=== PATIENT | female | born 1940 | race Caucasian/White ===

== ENCOUNTER 2020-01-13 13:39 | Outpatient (CLI) | payer MEDICARE, OTHER, SELFPAY ==
--- NOTE | 2020-01-13 15:11 | ONC FU_ITS ---
Dr. Peters Patient Follow-Up Note Patient: Noelle Whyte Unit #: [id number]: 1940 Dicatated By: Noah Peters M.D.Date of Visit:Jan 13, 2020 Onc Med Follow-up/Prog Note Chief Complaint: Chronic lymphocytic leukemia. History of Present Illness: This is a 79 year-old woman with chronic lymphocytic leukemia, Solis stage 0, but symptomatic. She was initially diagnosed with chronic lymphocytic leukemia 30 years ago, apparently by cervical lymph node biopsy. She had no treatment until 2011, when she was given a standard 4 week course of Rituxan. She had a very good response, but she did require treatment again in August 2014. At that time she was living in [place]. She had subsequently moved to [place], [place]. Her CBC from September 2015 showed elevated white count at 50,000 with differential showing 88% lymphocytes. The hemoglobin was normal at 13.5 g and the platelet count was normal at 170,000. A repeat CBC from 01/08/2016 showed the white count up to 85,000 with hemoglobin stable at 13.5 g and platelet count 181,000. I had seen her initially in January 2016. At that time she complained that she had been getting awfully tired. She reported having similar symptoms in the past when her white count was going up. She had been feeling okay otherwise. Her CBC at that time showed white count 78,000 with hemoglobin 12.8 g and platelet count 162,000. Her LDH was in the upper normal range at 235 U/L. A CLL prognostic panel by FISH was unrevealing. By objective evaluation her she still appeared to have early stage (Solis stage 0). However, she was showing fairly rapid progression, and she also appeared to be symptomatic. As such, she was offered the option of a trial therapy with ibrutinib. She started treatment in January 2016 at a standard dosage of 420 mg daily. Her lymphocyte count initially increased on the ibrutinib, as expected. Within a month it had started to come down, and it then continued to gradually decline. However, in September 2016 her ibrutinib was put on hold due to increasing fatigue, though at the time she did appeared to be showing a very good response to the treatment. She was then followed on observation/expectant management. She has additional history of portal vein thrombosis with associated esophageal varices. Her other medical illnesses include type II diabetes, GERD, and hypothyroidism. She is a nonsmoker. During followup she had developed a severe sinus infection. She eventually did have sinus surgery on 01/29/2018. Her clincical course was further complicated by Pseudomonas pneumonia. She had then continued further outpatient antibiotic coverage with meropenem, administered through a PICC line. She did have a complete recovery. She also had a repeat endoscopy procedure with Dr. Hernandez, and she apparently had 4 additional varices banded. She continued on observation/expectant management for the CLL. INTERIM HISTORY: As of her follow-up visit on 01/07/2019 her white count had increased to 101,000 with 91% lymphocytes. Hemoglobin had decreased slightly to 12.6 g. Her platelet count was still normal at 191,000. However, with the significant disease progression, I did talk to her about the possibility of restarting ibrutinib at a lower dosage. She was agreeable, but she preferred to delay it for least a few weeks. She then started ibrutinib on 01/26/2019 at a reduced dosage of 280 mg daily. As of her follow-up visit on 03/11/2019 she appeared to be tolerating it with acceptable toxicity and she was showing evidence of response. She then continued ibrutinib at 280 mg daily. She is seen for a follow-up visit. She continues to complain that her energy is not very good, but she is still doing light work at home. Her ECOG score is 1. She has good appetite. She has no fever or night sweats. Over the past 3 days she has developed pain and redness in both eyes, the left worse than the right. She says her eyes are mattering a lot. She is not having sinus symptoms. She does not complain of shortness of breath, cough, or chest pain. She has no GI or complaints. She has no significant joint or bone pain. She has no focal neurologic symptoms. Medications: Aldactone 2 (100 mg) Tablet Oral daily, Allopurinol 1 Tablet (of 300 mg) Oral daily, Carvedilol 1 Tablet (of 3.125 mg) Oral daily, Glimepiride 1 (2 mg) Tablet Oral daily, Imbruvica 1 (280 mg) Capsule Oral daily, Lantus 32 Units (of 100 Units/mL) Subcutaneous at bedtime, Levothroid 1 (175 mcg) Tablet Oral daily, Meloxicam 1 (15 mg) Tablet Oral daily, PriLOSEC 1 (40 mg) Capsule Delayed Release Oral daily Allergies: Codeine Sulfate Review of Systems: Constitutional - Her energy is not very good. She does light work at home. Her appetite is good and her weight is up 5 pounds since her last visit. No fever, chills, hot flashes, or night sweats. ECOG score is 1, Eyes - She has redness, pain and discharge in both of her eyes that started about 3 days ago. The left eye is worse than the right, ENMT - No sinus congestion/drainage. No mouth sores. No sore throat or difficulty swallowing, Hematologic/Lymphatic - No abnormal bruising or bleeding, Respiratory - No shortness of breath. No cough. No pleuritic pain or hemoptysis, Cardiovascular - No angina pain. No palpitations, Gastrointestinal - No nausea or vomiting. No heartburn or acid reflux. No diarrhea or constipation. No blood in the stool or black stools, Genitourinary (F) - No dysuria or hematuria. No urinary frequency. No urgency or incontinence, Musculoskeletal - No joint or bone pain, Integumentary - No skin complications, Neurologic - No headache or dizziness. No numbness/paresthesias or other focal neurologic symptoms, Psychiatric - No anxiety or depression. No insomnia. Vital Signs: Performed on Jan 13, 2020 14:00 Height - 62.50 in Weight - 219.0 lbs (HIGH) BSA - 2.00 sq.m BMI - 39.42 (HIGH) Temperature - 97.3 F (LOW) Pulse - 79 /min Respiration - 26 /min BP - 149/83 mm(hg) (HIGH) O2 Sat - 99 % Pain - 5 Physical Examination: Constitutional - She looks pretty good generally, Eyes - Sclerae nonicteric. Both eyes are red, the left worse than the right. The left eye has a slght purulent discharge, ENMT - There are no lesions noted in the oral cavity, Hematologic/Lymphatic - No cervical, clavicular, or axillary adenopathy, Respiratory - Lungs are clear with good air movement bilaterally, Cardiovascular - Heart rhythm is regular. There is a II/ systolic murmur. There is no gallop or rub noted, Abdomen - Soft. Liver and spleen are not enlarged. There is no abdominal mass or ascites noted and there is no inguinal adenopathy, Extremities - There are severe venous stasis changes bilaterally. There is no edema, Neurologic - No focal neurologic deficits noted. Lab/Imaging: Test performed on Dec 27, 2019 10:27 Glucose 98 mg/dL LDH, Total 198 IU/L BUN 37 mg/dL Creatinine 1.13 mg/dL Cr Clearance (Est) 63.95 mL/min BUN/Creatinine Ratio 33 Absolute Value Sodium 144 mmol/L Potassium 4.6 mmol/L Chloride 108 mmol/L CO2 23 mmol/L Calcium 9.6 mg/dL Protein, Total 5.8 g/dL Albumin 4.2 g/dL Globulin 1.6 g/dL A/G Ratio 2.6 Absolute Value Bilirubin, Total 0.6 mg/dL Alkaline Phosphatase 95 IU/L AST (SGOT) 21 IU/L ALT (SGPT) 19 IU/L WBC 6.1 10^9/L RBC 4.63 10^12/L HGB 13.3 g/dL HCT 40.4 % MCV 87.3 fl MCH 28.7 pg MCHC 32.9 g/dL RDW 14.3 % Platelet Count 157 10^9/L Neutrophils (Gran) 2.9951 10^9/L Lymphocytes 2.4949 10^9/L Monocytes 0.4636 10^9/L Eosinophils 0.0976 10^9/L Basophils 0.0305 10^9/L Impression: 1. Patient with longstanding chronic leukocytic leukemia. I had seen her initially in January 2016. By objective assessment, she had early stage disease (Solis stage 0), but it did appear to be symptomatic, and it was progressing fairly rapidly. She had previously responded well to treatment with rituximab, but with relatively short-term response. 2. In January 2016 she began a trial of therapy with ibrutinib at a standard dosage of 420 mg daily. She had a very good response, but it was stopped as of September 2016 due to worsening fatigue. 3. In 2017 she required treatment for Pseudomonas sinus infection and pneumonia, and she underwent sinus surgery in January 2018. Her other medical illnesses include:. 4. Portal vein thrombosis with associated portal hypertension/esophageal varices. 5. Type II diabetes. 6. Hypothyroidism. 7. GERD. She had a good recovery following her sinus surgery in January 2018, but she continued to have fatigue. As of her followup visit on 01/07/2019 there was a significantly increase in her lymphocyte count. Her hemoglobin/hematocrit levels were down slightly, and there appeared to have been some decline in her platelet count, though not consistently. Overall, there was definite progression of her CLL, and in January 2019 she restarted ibrutinib at a reduced dosage of 280 mg daily. During follow-up, she had a gradual decline in her lymphocyte count along with improvement in the anemia and thrombocytopenia. She also had significant improvement in her clinical status. At this point she continues to have significant fatigue, but she appears to tolerating treatment well otherwise, and her blood counts now are normal. Overall, she has had a very good response to the treatment, though she does present now with clinical evidence of bilateral conjunctivitis. Plan: She will continue ibrutinib 280 mg daily. As she does appear to have immune suppression it with the CLL, she will be given a prescription for trimethoprim/polymyxin B eyedrops for the conjunctivitis. I also will check her quantitative immunoglobulin levels with her next visit, which will be in 3 months. Signed By: Noah Peters M.D. <<Signature on File>>
== END 2020-01-13 13:40 | disposition home or self-care (01) ==
LOC: ONCMED 13:39
PROVIDERS: Family Provider Family Medicine; PCP Family Medicine; Visit Provider Internal Medicine Medical Oncology
DX: C91.10 Chronic lymphocytic leukemia of B-cell type not having achieved remission (principal); E11.9 Type 2 diabetes mellitus without complications; K21.9 Gastro-esophageal reflux disease without esophagitis; E03.9 Hypothyroidism, unspecified; H10.9 Unspecified conjunctivitis; Z79.4 Long term (current) use of insulin
CPT/HCPCS: 99214

== ENCOUNTER 2020-04-27 15:23 | Outpatient (CLI) | payer MEDICARE, OTHER, SELFPAY ==
--- NOTE | 2020-04-30 13:18 | ONC FU_ITS ---
Dr. Peters Patient Follow-Up Note Patient: Noelle Whyte Unit #: [id number]: [id number] Dicatated By: Noah Peters M.D.Date of Visit:Apr 27, 2020 Onc Med Follow-up/Prog Note Chief Complaint: Chronic lymphocytic leukemia. History of Present Illness: This is a 79 year-old woman with chronic lymphocytic leukemia, Solis stage 0, but symptomatic. She was initially diagnosed with chronic lymphocytic leukemia 30 years ago, apparently by cervical lymph node biopsy. She had no treatment until 2011, when she was given a standard 4 week course of Rituxan. She had a very good response, but she did require treatment again in August 2014. At that time she was living in [place]. She had subsequently moved to [place], [place]. Her CBC from September 2015 showed elevated white count at 50,000 with differential showing 88% lymphocytes. The hemoglobin was normal at 13.5 g and the platelet count was normal at 170,000. A repeat CBC from 01/08/2016 showed the white count up to 85,000 with hemoglobin stable at 13.5 g and platelet count 181,000. I had seen her initially in January 2016. At that time she complained that she had been getting awfully tired. She reported having similar symptoms in the past when her white count was going up. She had been feeling okay otherwise. Her CBC at that time showed white count 78,000 with hemoglobin 12.8 g and platelet count 162,000. Her LDH was in the upper normal range at 235 U/L. A CLL prognostic panel by FISH was unrevealing. By objective evaluation her she still appeared to have early stage (Solis stage 0). However, she was showing fairly rapid progression, and she also appeared to be symptomatic. As such, she was offered the option of a trial therapy with ibrutinib. She started treatment in January 2016 at a standard dosage of 420 mg daily. Her lymphocyte count initially increased on the ibrutinib, as expected. Within a month it had started to come down, and it then continued to gradually decline. However, in September 2016 her ibrutinib was put on hold due to increasing fatigue, though at the time she did appeared to be showing a very good response to the treatment. She was then followed on observation/expectant management. She has additional history of portal vein thrombosis with associated esophageal varices. Her other medical illnesses include type II diabetes, GERD, and hypothyroidism. She is a nonsmoker. During followup she had developed a severe sinus infection. She eventually did have sinus surgery on 01/29/2018. Her clincical course was further complicated by Pseudomonas pneumonia. She had then continued further outpatient antibiotic coverage with meropenem, administered through a PICC line. She did have a complete recovery. She also had a repeat endoscopy procedure with Dr. Hernandez, and she apparently had 4 additional varices banded. She continued on observation/expectant management for the CLL. INTERIM HISTORY: As of her follow-up visit on 01/07/2019 her white count had increased to 101,000 with 91% lymphocytes. Hemoglobin had decreased slightly to 12.6 g. Her platelet count was still normal at 191,000. However, with the significant disease progression, I did talk to her about the possibility of restarting ibrutinib at a lower dosage. She was agreeable, but she preferred to delay it for least a few weeks. She then started ibrutinib on 01/26/2019 at a reduced dosage of 280 mg daily. As of her follow-up visit on 03/11/2019 she appeared to be tolerating it with acceptable toxicity and she was showing evidence of response. She then continued ibrutinib at 280 mg daily. She is seen for a follow-up visit. She has been feeling pretty good generally, though she says her energy is still not too good. She is able to do light work. ECOG score is 1. She has good appetite. She has no fever or night sweats. She does complain that she has had mouth sores. She has no shortness of breath, cough, or chest pain. She has no other GI or complaints. She has no significant joint or bone pain. She has no focal neurologic symptoms. Medications: Aldactone 2 (100 mg) Tablet Oral daily, Allopurinol 1 Tablet (of 300 mg) Oral daily, Carvedilol 1 Tablet (of 3.125 mg) Oral daily, Glimepiride 1 (2 mg) Tablet Oral daily, Imbruvica 1 (280 mg) Capsule Oral daily, Lantus 32 Units (of 100 Units/mL) Subcutaneous at bedtime, Levothroid 1 (175 mcg) Tablet Oral daily, Meloxicam 1 (15 mg) Tablet Oral daily, PriLOSEC 1 (40 mg) Capsule Delayed Release Oral daily Allergies: Codeine Sulfate Review of Systems: Constitutional - She is generally feeling good, though her energy is pretty low. She is able to do light work in and around the house. Her appetite is good and weight is stable. No fever, night sweats, or hot flashes. ECOG score is 1, ENMT - No sinus congestion/drainage. She has mouth sores. No sore throat or difficulty swallowing, Hematologic/Lymphatic - She bruises easily, Respiratory - No shortness of breath. No cough. No pleuritic pain or hemoptysis, Cardiovascular - No angina pain. No palpitations, Gastrointestinal - No nausea or vomiting. No heartburn or acid reflux. No diarrhea or constipation. No blood in the stool or black stools, Genitourinary (F) - No dysuria or hematuria. No urinary frequency. No urgency or incontinence, Musculoskeletal - No joint or bone pain, Integumentary - No skin complications, Neurologic - No headache or dizziness. No numbness or tingling. No other focal neurologic symptoms, Psychiatric - No anxiety or depression. No insomnia. Vital Signs: Performed on Apr 27, 2020 15:36 Height - 62.50 in Weight - 220.0 lbs (HIGH) BSA - 2.00 sq.m BMI - 39.60 (HIGH) Temperature - 97.0 F (LOW) Pulse - 93 /min Respiration - 24 /min BP - 134/82 mm(hg) O2 Sat - 94 % (LOW) Pain - 0 Physical Examination: Constitutional - She looks pretty good generally, Eyes - Sclerae nonicteric. Conjunctivae clear, ENMT - There is a small ulceration in the upper gum. There are no other lesions noted in the oral cavity, Hematologic/Lymphatic - No cervical, clavicular, or axillary adenopathy, Respiratory - Lungs are clear with good air movement bilaterally, Cardiovascular - Heart rhythm is regular. There is a II/ systolic murmur. There is no gallop or rub noted, Abdomen - Soft. Liver and spleen are not enlarged. There is no abdominal mass or ascites noted and there is no inguinal adenopathy, Extremities - There are venous stasis changes bilaterally. There is an ulceration in the right lower anterior tibial area. There is no edema, Neurologic - No focal neurologic deficits noted. Lab/Imaging: Test performed on Apr 24, 2020 16:08 Glucose 143 mg/dL LDH, Total 155 IU/L BUN 34 mg/dL Creatinine 1.14 mg/dL Cr Clearance (Est) 64.81 mL/min BUN/Creatinine Ratio 30 Absolute Value Sodium 140 mmol/L Potassium 4.8 mmol/L Chloride 106 mmol/L CO2 21 mmol/L Calcium 9.2 mg/dL Protein, Total 5.9 g/dL Albumin 4.1 g/dL Globulin 1.8 g/dL A/G Ratio 2.3 Absolute Value Bilirubin, Total 0.6 mg/dL Alkaline Phosphatase 99 IU/L AST (SGOT) 21 IU/L ALT (SGPT) 23 IU/L WBC 7.3 10^9/L RBC 4.72 10^12/L HGB 13.8 g/dL HCT 42.1 % MCV 89.2 fl MCH 29.2 pg MCHC 32.8 g/dL RDW 14.1 % Platelet Count 178 10^9/L Neutrophils (Gran) 3.9 10^9/L Lymphocytes 2.5 10^9/L Monocytes 0.6 10^9/L Eosinophils 0.2 10^9/L Basophils 0.0 10^9/L Manual Lymphocytes 34.3 % Manual Monocytes 8.0 % Manual Eosinophils 2.2 % Manual Basophils 0.6 % IGA 202 mg/dL IGG 442 mg/dL IGM 23 mg/dL Impression: 1. Patient with longstanding chronic leukocytic leukemia. I had seen her initially in January 2016. By objective assessment, she had early stage disease (Solis stage 0), but it did appear to be symptomatic, and it was progressing fairly rapidly. She had previously responded well to treatment with rituximab, but with relatively short-term response. 2. In January 2016 she began a trial of therapy with ibrutinib at a standard dosage of 420 mg daily. She had a very good response, but it was stopped as of September 2016 due to worsening fatigue. 3. In 2017 she required treatment for Pseudomonas sinus infection and pneumonia, and she underwent sinus surgery in January 2018. Her other medical illnesses include:. 4. Portal vein thrombosis with associated portal hypertension/esophageal varices. 5. Type II diabetes. 6. Hypothyroidism. 7. GERD. She had a good recovery following her sinus surgery in January 2018, but she continued to have fatigue. As of her followup visit on 01/07/2019 there was a significantly increase in her lymphocyte count. Her hemoglobin/hematocrit levels were down slightly, and there appeared to have been some decline in her platelet count, though not consistently. Overall, there was definite progression of her CLL, and in January 2019 she restarted ibrutinib at a reduced dosage of 280 mg daily. During follow-up, she had a gradual decline in her lymphocyte count along with improvement in the anemia and thrombocytopenia. She also had significant improvement in her clinical status. However, she has since then continued to have significant fatigue and she also now has been having mouth sores. However, she continues to have very good response to the ibrutinib, as her blood counts remain normal. Plan: She will continue ibrutinib, but I will have her reduce the dosage to 140 mg daily. I will see her again in 3 months, or sooner as needed. Signed By: Noah Peters M.D. <<Signature on File>>
== END 2020-04-27 15:24 | disposition home or self-care (01) ==
LOC: ONCMED 15:31
PROVIDERS: PCP Family Medicine; Visit Provider Internal Medicine Medical Oncology
DX: C91.10 Chronic lymphocytic leukemia of B-cell type not having achieved remission (principal); K21.9 Gastro-esophageal reflux disease without esophagitis; E03.9 Hypothyroidism, unspecified; I81 Portal vein thrombosis; I85.00 Esophageal varices without bleeding; E11.9 Type 2 diabetes mellitus without complications; Z79.899 Other long term (current) drug therapy
CPT/HCPCS: 99214

== ENCOUNTER 2020-08-07 14:45 | Outpatient (CLI) | payer MEDICARE, OTHER, SELFPAY ==
--- NOTE | 2020-08-11 18:54 | ONC FU_ITS ---
Dr. Peters Patient Follow-Up Note Patient: Noelle Whyte Unit #: [id number]: [id number] Dicatated By: Noah Peters M.D.Date of Visit:Aug 07, 2020 Onc Med Follow-up/Prog Note Chief Complaint: Chronic lymphocytic leukemia. History of Present Illness: This is a 79 year-old woman with chronic lymphocytic leukemia, Solis stage 0, but symptomatic. She was initially diagnosed with chronic lymphocytic leukemia 30 years ago, apparently by cervical lymph node biopsy. She had no treatment until 2011, when she was given a standard 4 week course of Rituxan. She had a very good response, but she did require treatment again in August 2014. At that time she was living in [place]. She had subsequently moved to [place], [place]. Her CBC from September 2015 showed elevated white count at 50,000 with differential showing 88% lymphocytes. The hemoglobin was normal at 13.5 g and the platelet count was normal at 170,000. A repeat CBC from 01/08/2016 showed the white count up to 85,000 with hemoglobin stable at 13.5 g and platelet count 181,000. I had seen her initially in January 2016. At that time she complained that she had been getting awfully tired. She reported having similar symptoms in the past when her white count was going up. She had been feeling okay otherwise. Her CBC at that time showed white count 78,000 with hemoglobin 12.8 g and platelet count 162,000. Her LDH was in the upper normal range at 235 U/L. A CLL prognostic panel by FISH was unrevealing. By objective evaluation her she still appeared to have early stage (Solis stage 0). However, she was showing fairly rapid progression, and she also appeared to be symptomatic. As such, she was offered the option of a trial therapy with ibrutinib. She started treatment in January 2016 at a standard dosage of 420 mg daily. Her lymphocyte count initially increased on the ibrutinib, as expected. Within a month it had started to come down, and it then continued to gradually decline. However, in September 2016 her ibrutinib was put on hold due to increasing fatigue, though at the time she did appeared to be showing a very good response to the treatment. She was then followed on observation/expectant management. She has additional history of portal vein thrombosis with associated esophageal varices. Her other medical illnesses include type II diabetes, GERD, and hypothyroidism. She is a nonsmoker. During followup she had developed a severe sinus infection. She eventually did have sinus surgery on 01/29/2018. Her clincical course was further complicated by Pseudomonas pneumonia. She had then continued further outpatient antibiotic coverage with meropenem, administered through a PICC line. She did have a complete recovery. She also had a repeat endoscopy procedure with Dr. Hernandez, and she apparently had 4 additional varices banded. She continued on observation/expectant management for the CLL. INTERIM HISTORY: As of her follow-up visit on 01/07/2019 her white count had increased to 101,000 with 91% lymphocytes. Hemoglobin had decreased slightly to 12.6 g. Her platelet count was still normal at 191,000. However, with the significant disease progression, I did talk to her about the possibility of restarting ibrutinib at a lower dosage. She was agreeable, but she preferred to delay it for least a few weeks. She then started ibrutinib on 01/26/2019 at a reduced dosage of 280 mg daily. As of her follow-up visit on 03/11/2019 she appeared to be tolerating it with acceptable toxicity and she was showing evidence of response. She then continued ibrutinib at 280 mg daily. As of her follow-up visit on 04/27/2020 she had developed mouth sores and fatigue, and I opted to decrease her ibrutinib dosage to 140 mg daily. She is seen for a follow-up visit. She has been feeling okay, though her energy is just about the same. She has some fatigue, but she is able to do light work. ECOG score is 1. She has good appetite. She has no fever or night sweats. She says her sinuses have been pretty good. She does not complain of mouth sores. She has no shortness of breath, cough, or chest pain. She currently has no GI or complaints. She has some joint pain, mainly in her knees and hands, but it is no more than usual. She has no focal neurologic symptoms. She does complain that she bruises a lot. Medications: Aldactone 2 (100 mg) Tablet Oral daily, Allopurinol 1 Tablet (of 300 mg) Oral daily, Carvedilol 1 Tablet (of 3.125 mg) Oral daily, Glimepiride 1 (2 mg) Tablet Oral daily, Imbruvica 1 (140 mg) Capsule Oral daily, Lantus 32 Units (of 100 Units/mL) Subcutaneous at bedtime, Levothroid 1 (175 mcg) Tablet Oral daily, Meloxicam 1 (15 mg) Tablet Oral daily, PriLOSEC 1 (40 mg) Capsule Delayed Release Oral daily Allergies: Codeine Sulfate Review of Systems: Constitutional - Her energy is about the same. She has fatigue, but she is able to do light work. Appetite is good and weight is stable. No fever, night sweats, or hot flashes. ECOG score is 1, ENMT - Her sinuses have been pretty good. No mouth sores. No sore throat or difficulty swallowing, Hematologic/Lymphatic - She bruises a lot, Respiratory - No shortness of breath. No cough. No pleuritic pain or hemoptysis, Cardiovascular - No angina pain. No palpitations, Gastrointestinal - No nausea or vomiting. No heartburn or acid reflux. No diarrhea or constipation. No blood in the stool or black stools, Genitourinary (F) - No dysuria or hematuria. No urinary frequency. No urgency or incontinence, Musculoskeletal - She has joint pain, mainly in her knees and hands, but no more than usual, Integumentary - No skin rash, Neurologic - No headache or dizziness. No numbness or tingling. No other focal neurologic symptoms, Psychiatric - No anxiety or depression. No insomnia. Vital Signs: Performed on Aug 07, 2020 14:57 Height - 62.50 in Weight - 224.6 lbs (HIGH) BSA - 2.02 sq.m BMI - 40.43 (HIGH) Temperature - 97.8 F (LOW) Pulse - 97 /min Respiration - 22 /min BP - 132/80 mm(hg) O2 Sat - 98 % Pain - 0 Physical Examination: Constitutional - She looks pretty good generally, Eyes - Sclerae nonicteric. Conjunctivae clear, ENMT - No lesions noted in the oral cavity, Hematologic/Lymphatic - No cervical, clavicular, or axillary adenopathy, Respiratory - Lungs are clear with good air movement bilaterally, Cardiovascular - Heart rhythm is regular. There is a II/ systolic murmur. There is no gallop or rub noted, Abdomen - Soft. Liver and spleen are not enlarged. There is no abdominal mass or ascites noted and there is no inguinal adenopathy, Extremities - There are venous stasis changes bilaterally. There is no edema, Integumentary - There are no open skin ulcerations, Neurologic - No focal neurologic deficits noted. Lab/Imaging: Test performed on Aug 02, 2020 09:09 Glucose 165 mg/dL BUN 28 mg/dL Creatinine 0.98 mg/dL Cr Clearance (Est) 75.74 mL/min Sodium 144 mmol/L Potassium 4.6 mmol/L Chloride 108 mmol/L CO2 22 mmol/L Calcium 9.0 mg/dL Protein, Total 5.4 g/dL Albumin 4.2 g/dL Globulin 1.2 g/dL A/G Ratio 3.5 Absolute Value Bilirubin, Total 0.5 mg/dL Alkaline Phosphatase 103 IU/L AST (SGOT) 24 IU/L ALT (SGPT) 24 IU/L WBC 4.7 10^9/L RBC 4.42 10^12/L HGB 12.9 g/dL HCT 39.6 % MCV 89.6 fl MCH 29.2 pg MCHC 32.6 g/dL RDW 14.0 % Platelet Count 137 10^9/L Neutrophils (Gran) 2.8 10^9/L Lymphocytes 1.3 10^9/L Monocytes 0.4 10^9/L Eosinophils 0.1 10^9/L Basophils 0.0 10^9/L Manual Lymphocytes 27.4 % Manual Monocytes 8.9 % Manual Eosinophils 2.1 % Manual Basophils 0.4 % Impression: 1. Patient with longstanding chronic leukocytic leukemia. I had seen her initially in January 2016. By objective assessment, she had early stage disease (Solis stage 0), but it did appear to be symptomatic, and it was progressing fairly rapidly. She had previously responded well to treatment with rituximab, but with relatively short-term response. 2. In January 2016 she began a trial of therapy with ibrutinib at a standard dosage of 420 mg daily. She had a very good response, but it was stopped as of September 2016 due to worsening fatigue. 3. In 2017 she required treatment for Pseudomonas sinus infection and pneumonia, and she underwent sinus surgery in January 2018. Her other medical illnesses include:. 4. Portal vein thrombosis with associated portal hypertension/esophageal varices. 5. Type II diabetes. 6. Hypothyroidism. 7. GERD. She had a good recovery following her sinus surgery in January 2018, but she continued to have fatigue. As of her followup visit on 01/07/2019 there was a significantly increase in her lymphocyte count. Her hemoglobin/hematocrit levels were down slightly, and there appeared to have been some decline in her platelet count, though not consistently. Overall, there was definite progression of her CLL, and in January 2019 she restarted ibrutinib at a reduced dosage of 280 mg daily. During follow-up, she had a gradual decline in her lymphocyte count along with improvement in the anemia and thrombocytopenia. She also had significant improvement in her clinical status. However, as of her follow-up visit in April 2020 she was having significant fatigue and she also was having mouth sores. Her blood counts were still normal. I opted to have her decrease the ibrutinib to 140 mg daily. Since then she has had no further mouth sores. Her clinical status has otherwise been stable, but her blood counts appeared to be declining now. Plan: For now I will have her continue ibrutinib 140 mg daily. I will see her again in 3 months. If her blood counts continue to decline, she will need to have restaging of her CLL. Signed By: Noah Peters M.D. <<Signature on File>>
== END 2020-08-07 14:46 | disposition home or self-care (01) ==
LOC: ONCMED 14:49
PROVIDERS: PCP Family Medicine; Visit Provider Internal Medicine Medical Oncology
DX: C91.10 Chronic lymphocytic leukemia of B-cell type not having achieved remission (principal); I81 Portal vein thrombosis; K76.6 Portal hypertension; I85.00 Esophageal varices without bleeding; E11.9 Type 2 diabetes mellitus without complications; E03.9 Hypothyroidism, unspecified; K21.9 Gastro-esophageal reflux disease without esophagitis
CPT/HCPCS: 99214

== ENCOUNTER 2020-11-28 11:19 | Outpatient (CLI) | payer MEDICARE, OTHER, SELFPAY ==
--- NOTE | 2020-12-02 15:03 | ONC FU_ITS ---
Dr. Peters Patient Follow-Up Note Patient: Noelle Whyte Unit #: [id number]: [id number] Dicatated By: Noah Peters M.D.Date of Visit:Nov 28, 2020 Onc Med Follow-up/Prog Note Chief Complaint: Chronic lymphocytic leukemia. History of Present Illness: This is a 79 year-old woman with chronic lymphocytic leukemia, Solis stage 0, but symptomatic. She was initially diagnosed with chronic lymphocytic leukemia 30 years ago, apparently by cervical lymph node biopsy. She had no treatment until 2011, when she was given a standard 4 week course of Rituxan. She had a very good response, but she did require treatment again in August 2014. At that time she was living in [place]. She had subsequently moved to [place], [place]. Her CBC from September 2015 showed elevated white count at 50,000 with differential showing 88% lymphocytes. The hemoglobin was normal at 13.5 g and the platelet count was normal at 170,000. A repeat CBC from 01/08/2016 showed the white count up to 85,000 with hemoglobin stable at 13.5 g and platelet count 181,000. I had seen her initially in January 2016. At that time she complained that she had been getting awfully tired. She reported having similar symptoms in the past when her white count was going up. She had been feeling okay otherwise. Her CBC at that time showed white count 78,000 with hemoglobin 12.8 g and platelet count 162,000. Her LDH was in the upper normal range at 235 U/L. A CLL prognostic panel by FISH was unrevealing. By objective evaluation her she still appeared to have early stage (Solis stage 0). However, she was showing fairly rapid progression, and she also appeared to be symptomatic. As such, she was offered the option of a trial therapy with ibrutinib. She started treatment in January 2016 at a standard dosage of 420 mg daily. Her lymphocyte count initially increased on the ibrutinib, as expected. Within a month it had started to come down, and it then continued to gradually decline. However, in September 2016 her ibrutinib was put on hold due to increasing fatigue, though at the time she did appeared to be showing a very good response to the treatment. She was then followed on observation/expectant management. She has additional history of portal vein thrombosis with associated esophageal varices. Her other medical illnesses include type II diabetes, GERD, and hypothyroidism. She is a nonsmoker. During followup she had developed a severe sinus infection. She eventually did have sinus surgery on 01/29/2018. Her clincical course was further complicated by Pseudomonas pneumonia. She had then continued further outpatient antibiotic coverage with meropenem, administered through a PICC line. She did have a complete recovery. She also had a repeat endoscopy procedure with Dr. Hernandez, and she apparently had 4 additional varices banded. She continued on observation/expectant management for the CLL. INTERIM HISTORY: As of her follow-up visit on 01/07/2019 her white count had increased to 101,000 with 91% lymphocytes. Hemoglobin had decreased slightly to 12.6 g. Her platelet count was still normal at 191,000. However, with the significant disease progression, I did talk to her about the possibility of restarting ibrutinib at a lower dosage. She was agreeable, but she preferred to delay it for least a few weeks. She then started ibrutinib on 01/26/2019 at a reduced dosage of 280 mg daily. As of her follow-up visit on 03/11/2019 she appeared to be tolerating it with acceptable toxicity and she was showing evidence of response. She then continued ibrutinib at 280 mg daily. As of her follow-up visit on 04/27/2020 she had developed mouth sores and fatigue, and I opted to decrease her ibrutinib dosage to 140 mg daily. She is seen for a follow-up visit. She was seen for follow-up again on 08/07/2020. She appeared to be doing somewhat better clinically, but her blood counts had declined a little. She continued ibrutinib at 140 mg daily. In August 2020 she was diagnosed with COVID-19 virus infection. She had an initial hospitalization for 10 days, but following discharge her condition worsened again, requiring readmission and a more prolonged hospitalization. She is now back home again. She is on continuous oxygen, and she is getting physical therapy. She still has very limited activity. ECOG score is 3. She has good appetite. She does not have fever or night sweats. She has shortness of breath. She was having bad cough, but that is better now. She does not complain of chest pain. She has no GI or complaints and she has no significant joint or bone pain. She does not complain of headache, and she has no focal neurologic symptoms. She does report having easy bruising. Medications: Aldactone 2 (100 mg) Tablet Oral daily, Allopurinol 1 Tablet (of 300 mg) Oral daily, Carvedilol 1 Tablet (of 3.125 mg) Oral daily, Glimepiride 1 (2 mg) Tablet Oral daily, Imbruvica 1 (140 mg) Capsule Oral daily, Lantus 32 Units (of 100 Units/mL) Subcutaneous at bedtime, Levothroid 1 (175 mcg) Tablet Oral daily, Meloxicam 1 (15 mg) Tablet Oral daily, PriLOSEC 1 (40 mg) Capsule Delayed Release Oral daily Allergies: Codeine Sulfate Vital Signs: Performed on Nov 28, 2020 11:48 Height - 62.50 in Weight - 187.8 lbs (LOW) BSA - 1.87 sq.m BMI - 33.80 (HIGH) Temperature - 97.9 F (LOW) Pulse - 99 /min Respiration - 19 /min BP - 149/92 mm(hg) (HIGH) O2 Sat - 97 % Pain - 0 Physical Examination: Constitutional - She appears generally weak, Eyes - Sclerae nonicteric. Conjunctivae clear, ENMT - No lesions noted in the oral cavity, Hematologic/Lymphatic - No cervical, clavicular, or axillary adenopathy, Respiratory - Lungs sound clear with some decrease in air movement bilaterally, Cardiovascular - Heart rhythm is regular with some premature beats. There is a II/ systolic murmur. There is no gallop or rub noted, Abdomen - Soft. Liver and spleen are not enlarged. There is no abdominal mass or ascites noted and there is no inguinal adenopathy, Extremities - There are venous stasis changes bilaterally. There is no edema, Neurologic - No focal neurologic deficits noted. Lab/Imaging: CBC shows hemoglobin 15.0 g with hematocrit 47.0%, white blood cell count 11,600, and platelet count 281,000. The differential shows 77% granulocytes and 16% lymphocytes. Historic Problem List: 1.Chronic leukocytic leukemia, diagnosed at least 30 years ago. I had seen her initially in January 2016. By objective assessment, she had early stage disease (Solis stage 0), but it did appear to be symptomatic, and it was progressing fairly rapidly. She had previously responded well to treatment with rituximab, but with relatively short-term response. 2. In January 2016 she began a trial of therapy with ibrutinib. She had a good response, but she did require dose reductions due to side effects. 3. In 2017 she required treatment for Pseudomonas sinus infection and pneumonia, and she underwent sinus surgery in January 2018. 4. She has a history of portal vein thrombosis with associated portal hypertension/esophageal varices. 5. Type II diabetes. 6. Hypothyroidism. 7. GERD. Problems Addressed with this Encounter and Plan: 1. Chronic leukocytic leukemia, Solis stage 0, but symptomatic. She has had a good response to treatment with ibrutinib. She has been tolerating the ibrutinib at a reduced dosage of 140 mg daily. As long as she is showing clinical improvement, she will continue the ibrutinib at the same dosage. She will be scheduled for a follow-up visit in 3 months. 2. COVID-19 virus infection. Her recent clinical course has been complicated by COVID-19 virus infection. With that illness she has had significant decline in performance status, and she is still on continuous oxygen. However, she now appears to be showing gradual recovery. She will continue her physical therapy and other supportive treatment. Signed By: Noah Peters M.D. <<Signature on File>>
== END 2020-11-28 11:20 | disposition home or self-care (01) ==
LOC: ONCMED 11:25
PROVIDERS: PCP Family Medicine; Visit Provider Internal Medicine Medical Oncology
DX: C91.10 Chronic lymphocytic leukemia of B-cell type not having achieved remission (principal); I81 Portal vein thrombosis; K76.6 Portal hypertension; I85.00 Esophageal varices without bleeding; E11.9 Type 2 diabetes mellitus without complications; E03.9 Hypothyroidism, unspecified; K21.9 Gastro-esophageal reflux disease without esophagitis; Z79.899 Other long term (current) drug therapy
CPT/HCPCS: 99214

== ENCOUNTER 2021-02-27 10:14 | Outpatient (CLI) | payer MEDICARE, OTHER, SELFPAY ==
--- NOTE | 2021-03-03 09:53 | ONC FU_ITS ---
Dr. Peters Patient Follow-Up Note Patient: Noelle Whyte Unit #: [id number]: 1940 Dicatated By: Noah Peters M.D.Date of Visit:Feb 27, 2021 Onc Med Follow-up/Prog Note Chief Complaint: Chronic lymphocytic leukemia. History of Present Illness: This is a 80 year-old woman with chronic lymphocytic leukemia, Solis stage 0, but symptomatic. She was initially diagnosed with chronic lymphocytic leukemia 30 years ago, apparently by cervical lymph node biopsy. She had no treatment until 2011, when she was given a standard 4 week course of Rituxan. She had a very good response, but she did require treatment again in August 2014. At that time she was living in [place]. She had subsequently moved to [place], [place]. Her CBC from September 2015 showed elevated white count at 50,000 with differential showing 88% lymphocytes. The hemoglobin was normal at 13.5 g and the platelet count was normal at 170,000. A repeat CBC from 01/08/2016 showed the white count up to 85,000 with hemoglobin stable at 13.5 g and platelet count 181,000. I had seen her initially in January 2016. At that time she complained that she had been getting awfully tired. She reported having similar symptoms in the past when her white count was going up. She had been feeling okay otherwise. Her CBC at that time showed white count 78,000 with hemoglobin 12.8 g and platelet count 162,000. Her LDH was in the upper normal range at 235 U/L. A CLL prognostic panel by FISH was unrevealing. By objective evaluation her she still appeared to have early stage (Solis stage 0). However, she was showing fairly rapid progression, and she also appeared to be symptomatic. As such, she was offered the option of a trial therapy with ibrutinib. She started treatment in January 2016 at a standard dosage of 420 mg daily. Her lymphocyte count initially increased on the ibrutinib, as expected. Within a month it had started to come down, and it then continued to gradually decline. However, in September 2016 her ibrutinib was put on hold due to increasing fatigue, though at the time she did appeared to be showing a very good response to the treatment. She was then followed on observation/expectant management. She has additional history of portal vein thrombosis with associated esophageal varices. Her other medical illnesses include type II diabetes, GERD, and hypothyroidism. She is a nonsmoker. During followup she had developed a severe sinus infection. She eventually did have sinus surgery on 01/29/2018. Her clincical course was further complicated by Pseudomonas pneumonia. She had then continued further outpatient antibiotic coverage with meropenem, administered through a PICC line. She did have a complete recovery. She also had a repeat endoscopy procedure with Dr. Hernandez, and she apparently had 4 additional varices banded. She continued on observation/expectant management for the CLL. INTERIM HISTORY: As of her follow-up visit on 01/07/2019 her white count had increased to 101,000 with 91% lymphocytes. Hemoglobin had decreased slightly to 12.6 g. Her platelet count was still normal at 191,000. However, with the significant disease progression, I did talk to her about the possibility of restarting ibrutinib at a lower dosage. She was agreeable, but she preferred to delay it for least a few weeks. She then started ibrutinib on 01/26/2019 at a reduced dosage of 280 mg daily. As of her follow-up visit on 03/11/2019 she appeared to be tolerating it with acceptable toxicity and she was showing evidence of response. She then continued ibrutinib at 280 mg daily. As of her follow-up visit on 04/27/2020 she had developed mouth sores and fatigue, and I opted to decrease her ibrutinib dosage to 140 mg daily. As of her follow-up visit in July 2020 she appeared to be tolerating it well. In August 2020 she was diagnosed with COVID-19 virus infection. She had an initial hospitalization for 10 days, but following discharge her condition worsened again, requiring readmission and a more prolonged hospitalization. She eventually was able to return home, but with supplemental oxygen. As of her follow-up visit on 11/28/2020, she continued to have fairly marginal performance status, but she was beginning to show recovery. She continued the ibrutinib at 140 mg daily. She is seen for a scheduled visit. She has continued to show gradual improvement in her energy/activity tolerance, and she is back to doing some light housework now. ECOG score is 1. She has good appetite. She has no fever or night sweats. She still has some shortness of breath, and she is still on supplemental oxygen continuously. She does not have cough and she does not complain of chest pain. She has no GI or complaints. She has some joint pain in her hands. She does not complain of headache. She sometimes gets lightheaded. She has no numbness/paresthesia or other focal neurologic symptoms. Medications: Aldactone 2 (100 mg) Tablet Oral daily, Allopurinol 1 Tablet (of 300 mg) Oral daily, Carvedilol 1 Tablet (of 3.125 mg) Oral daily, Glimepiride 1 (2 mg) Tablet Oral daily, Imbruvica 1 (140 mg) Capsule Oral daily, Lantus 32 Units (of 100 Units/mL) Subcutaneous at bedtime, Levothroid 1 (175 mcg) Tablet Oral daily, Meloxicam 1 (15 mg) Tablet Oral daily, PriLOSEC 1 (40 mg) Capsule Delayed Release Oral daily Allergies: Codeine Sulfate Vital Signs: Performed on Feb 27, 2021 10:37 Height - 62.50 in Weight - 204.6 lbs (HIGH) BSA - 1.94 sq.m BMI - 36.83 (HIGH) Temperature - 97.0 F (LOW) Pulse - 83 /min Respiration - 18 /min BP - 142/64 mm(hg) (HIGH) O2 Sat - 90 % (LOW) Pain - 0 Physical Examination: Constitutional - She looks pretty good generally, Eyes - Sclerae nonicteric. Conjunctivae clear, ENMT - No lesions noted in the oral cavity, Hematologic/Lymphatic - No cervical, clavicular, or axillary adenopathy, Respiratory - Lungs sound clear, Cardiovascular - Heart rhythm is regular. There is a II/ systolic murmur. There is no gallop or rub noted, Abdomen - Soft. Liver and spleen are not enlarged. There is no abdominal mass or ascites noted and there is no inguinal adenopathy, Extremities - There are venous stasis changes bilaterally. There is no edema, Neurologic - No focal neurologic deficits noted. Lab/Imaging: Her most recent CBC showed hemoglobin 13.5 g with hematocrit 45.9%. The white blood cell count was 6800 with the differential showing 57% neutrophils, 31% lymphocytes, 7% monocytes, and 5% eosinophils. The platelet count was normal at 160,000. Comprehensive metabolic profile from 02/23/2021 showed stable renal function with BUN 29 and creatinine 1.07 mg/dL. Alkaline phosphatase was mildly elevated at 176/117 IUs/L. Bilirubin and other liver enzymes were normal. Problem List: 1. Chronic leukocytic leukemia, diagnosed at least 30 years ago. I had seen her initially in January 2016. By objective assessment, she had early stage disease (Solis stage 0), but it did appear to be symptomatic, and it appeared to be progressing fairly rapidly. 2. In 2017 she required treatment for Pseudomonas sinus infection and pneumonia, and she underwent sinus surgery in January 2018. 3. She has a history of portal vein thrombosis with associated portal hypertension/esophageal varices. 4. Type II diabetes. 5. Hypothyroidism. 6. GERD. 7. She was diagnosed with COVID-19 virus infection in August 2020. Problems Addressed with this Encounter and Plan: 1. Patient with chronic leukocytic leukemia, diagnosed at least 30 years ago. I had seen her initially in January 2016. By objective assessment, she had early stage disease (Solis stage 0), but it did appear to be symptomatic, and it appeared to be progressing fairly rapidly. She had previously responded well to treatment with rituximab, but with relatively short-term response. In January 2016 she began a trial of therapy with ibrutinib. She had a good response, but she did require dose reductions due to side effects. As of April 2020 she had a further dose reduction to 140 mg daily. Thus far she has been tolerating it well at that dosage, and her blood counts remain stable in normal range. As such, she will continue the ibrutinib at 140 mg daily. I will see her again in 3 months. 2. She was diagnosed with COVID-19 virus infection in August 2020. She has had gradual recovery, though she remains oxygen dependent following that illness. Signed By: Noah Peters M.D. <<Signature on File>>
== END 2021-02-27 10:15 | disposition home or self-care (01) ==
LOC: ONCMED 10:18
PROVIDERS: PCP Family Medicine; Visit Provider Internal Medicine Medical Oncology
DX: C91.10 Chronic lymphocytic leukemia of B-cell type not having achieved remission (principal); Z79.899 Other long term (current) drug therapy; Z86.16 Personal history of COVID-19; Z99.81 Dependence on supplemental oxygen
CPT/HCPCS: 99214

== ENCOUNTER 2021-06-13 13:50 | Outpatient (CLI) | payer MEDICARE, OTHER, SELFPAY ==
--- NOTE | 2021-06-17 15:46 | ONC FU_ITS ---
Dr. Peters Patient Follow-Up Note Patient: Noelle Whyte Unit #: [id number]: [id number] Dicatated By: Noah Peters M.D.Date of Visit:Jun 13, 2021 Onc Med Follow-up/Prog Note Chief Complaint: Chronic lymphocytic leukemia. History of Present Illness: This is a 80 year-old woman with chronic lymphocytic leukemia, Solis stage 0, but symptomatic. She was initially diagnosed with chronic lymphocytic leukemia 30 years ago, apparently by cervical lymph node biopsy. She had no treatment until 2011, when she was given a standard 4 week course of Rituxan. She had a very good response, but she did require treatment again in August 2014. At that time she was living in [place]. She had subsequently moved to [place], [place]. Her CBC from September 2015 showed elevated white count at 50,000 with differential showing 88% lymphocytes. The hemoglobin was normal at 13.5 g and the platelet count was normal at 170,000. A repeat CBC from 01/08/2016 showed the white count up to 85,000 with hemoglobin stable at 13.5 g and platelet count 181,000. I had seen her initially in January 2016. At that time she complained that she had been getting awfully tired. She reported having similar symptoms in the past when her white count was going up. She had been feeling okay otherwise. Her CBC at that time showed white count 78,000 with hemoglobin 12.8 g and platelet count 162,000. Her LDH was in the upper normal range at 235 U/L. A CLL prognostic panel by FISH was unrevealing. By objective evaluation her she still appeared to have early stage (Solis stage 0). However, she was showing fairly rapid progression, and she also appeared to be symptomatic. As such, she was offered the option of a trial therapy with ibrutinib. She started treatment in January 2016 at a standard dosage of 420 mg daily. Her lymphocyte count initially increased on the ibrutinib, as expected. Within a month it had started to come down, and it then continued to gradually decline. However, in September 2016 her ibrutinib was put on hold due to increasing fatigue, though at the time she did appeared to be showing a very good response to the treatment. She was then followed on observation/expectant management. She has additional history of portal vein thrombosis with associated esophageal varices. Her other medical illnesses include type II diabetes, GERD, and hypothyroidism. She is a nonsmoker. During followup she had developed a severe sinus infection. She eventually did have sinus surgery on 01/29/2018. Her clincical course was further complicated by Pseudomonas pneumonia. She had then continued further outpatient antibiotic coverage with meropenem, administered through a PICC line. She did have a complete recovery. She also had a repeat endoscopy procedure with Dr. Hernandez, and she apparently had 4 additional varices banded. She continued on observation/expectant management for the CLL. INTERIM HISTORY: As of her follow-up visit on 01/07/2019 her white count had increased to 101,000 with 91% lymphocytes. Hemoglobin had decreased slightly to 12.6 g. Her platelet count was still normal at 191,000. However, with the significant disease progression, I did talk to her about the possibility of restarting ibrutinib at a lower dosage. She was agreeable, but she preferred to delay it for least a few weeks. She then started ibrutinib on 01/26/2019 at a reduced dosage of 280 mg daily. As of her follow-up visit on 03/11/2019 she appeared to be tolerating it with acceptable toxicity and she was showing evidence of response. She then continued ibrutinib at 280 mg daily. As of her follow-up visit on 04/27/2020 she had developed mouth sores and fatigue, and I opted to decrease her ibrutinib dosage to 140 mg daily. As of her follow-up visit in July 2020 she appeared to be tolerating it well. In August 2020 she was diagnosed with COVID-19 virus infection. She had an initial hospitalization for 10 days, but following discharge her condition worsened again, requiring readmission and a more prolonged hospitalization. She eventually was able to return home, but with supplemental oxygen. As of her follow-up visit on 11/28/2020, she continued to have fairly marginal performance status, but she was beginning to show recovery. She continued the ibrutinib at 140 mg daily. She is seen for a scheduled visit. She has been feeling fairly good. She is able to do some light work. ECOG score is 1. She has good appetite. She has no fever or night sweats. She has not been having sinusitis symptoms. She has no shortness of breath, cough, or chest pain. She has no GI or complaints. She has a little arthritis in her hands. She does complain of headache. She has had lightheadedness, but less since she started taking her Coreg at night. She has no focal neurologic symptoms. She has easy bruising. She has no other bleeding manifestations. Medications: Aldactone 2 (100 mg) Tablet Oral daily, Allopurinol 1 Tablet (of 300 mg) Oral daily, Carvedilol 1 Tablet (of 3.125 mg) Oral daily, Glimepiride 1 (2 mg) Tablet Oral daily, Imbruvica 1 (140 mg) Capsule Oral daily, Lantus 32 Units (of 100 Units/mL) Subcutaneous at bedtime, Levothroid 1 (175 mcg) Tablet Oral daily, Meloxicam 1 (15 mg) Tablet Oral daily, PriLOSEC 1 (40 mg) Capsule Delayed Release Oral daily Allergies: Codeine Sulfate Vital Signs: Performed on Jun 13, 2021 15:38 Height - 62.50 in Weight - 203.2 lbs (LOW) BSA - 1.94 sq.m BMI - 36.57 (HIGH) Temperature - 96.6 F (LOW) Pulse - 76 /min Respiration - 18 /min BP - 134/85 mm(hg) O2 Sat - 96 % Pain - 0 Fatigue - 7 Physical Examination: Constitutional - She looks pretty good generally, Eyes - Sclerae nonicteric. Conjunctivae clear, ENMT - No lesions noted in the oral cavity, Hematologic/Lymphatic - No cervical, clavicular, or axillary adenopathy, Respiratory - Lungs sound clear, Cardiovascular - Heart rhythm is regular with some premature beats. There is a II/ systolic murmur. There is no gallop or rub noted, Abdomen - Soft. Liver and spleen are not enlarged. There is no abdominal mass or ascites noted and there is no inguinal adenopathy, Extremities - There are venous stasis changes bilaterally. There is no edema, Neurologic - No focal neurologic deficits noted. Lab/Imaging: Test performed on Jun 07, 2021 11:44 T4 7.9 mcg/dL TSH 5.380 uU/mL Cholesterol, Total 174 mg/dL Glucose 78 mg/dL BUN 28 mg/dL HDL Cholesterol 48 mg/dL Creatinine 1.02 mg/dL LDL Cholesterol 102 mg/dL Cr Clearance (Est) 66.60 mL/min VLDL Cholesterol 24 mg/dL Triglycerides 134 mg/dL Sodium 144 mmol/L Potassium 4.1 mmol/L Chloride 103 mmol/L CO2 28 mmol/L Calcium 9 mg/dL Protein, Total 5.2 g/dL Albumin 3.6 g/dL Globulin 1.6 g/dL A/G Ratio 2.3 Absolute Value Bilirubin, Total 0.8 mg/dL Alkaline Phosphatase 170 IU/L AST (SGOT) 21 IU/L ALT (SGPT) 18 IU/L Problem List: 1. Chronic leukocytic leukemia, diagnosed at least 30 years ago. I had seen her initially in January 2016. By objective assessment, she had early stage disease (Solis stage 0), but it did appear to be symptomatic, and it appeared to be progressing fairly rapidly. 2. In 2017 she required treatment for Pseudomonas sinus infection and pneumonia, and she underwent sinus surgery in January 2018. 3. She has a history of portal vein thrombosis with associated portal hypertension/esophageal varices. 4. Type II diabetes. 5. Hypothyroidism. 6. GERD. 7. She was diagnosed with COVID-19 virus infection in August 2020. Problems Addressed with this Encounter and Plan: Patient with chronic leukocytic leukemia, diagnosed at least 30 years ago. I had seen her initially in January 2016. By objective assessment, she had early stage disease (Solis stage 0), but it did appear to be symptomatic, and it appeared to be progressing fairly rapidly. She had previously responded well to treatment with rituximab, but with relatively short-term response. In January 2016 she began a trial of therapy with ibrutinib. She had a good response, but she did require dose reductions due to side effects. As of April 2020 she had a further dose reduction to 140 mg daily. Thus far she has been tolerating it well at that dosage, and her blood counts remain stable in normal range. Overall she appears to be doing well clinically. She continues ibrutinib at 140 mg daily. I will see her again in 3 months. Signed By: Noah Peters M.D. <<Signature on File>>
== END 2021-06-13 13:51 | disposition home or self-care (01) ==
LOC: ONCMED 13:55
PROVIDERS: PCP Family Medicine; Visit Provider Internal Medicine Medical Oncology
DX: C91.10 Chronic lymphocytic leukemia of B-cell type not having achieved remission (principal); Z86.718 Personal history of other venous thrombosis and embolism; E11.9 Type 2 diabetes mellitus without complications; E03.9 Hypothyroidism, unspecified; K21.9 Gastro-esophageal reflux disease without esophagitis; Z86.16 Personal history of COVID-19; Z79.899 Other long term (current) drug therapy
CPT/HCPCS: 99214

== ENCOUNTER 2021-09-24 08:13 | Outpatient (CLI) | payer MEDICARE, OTHER, SELFPAY ==
--- NOTE | 2021-09-24 19:58 | ONC FU_ITS ---
Dr. Peters Patient Follow-Up Note Patient: Noelle Whyte Unit #: [id number]: 1940 Dicatated By: Noah Peters M.D.Date of Visit:Sep 24, 2021 Onc Med Follow-up/Prog Note Chief Complaint: Chronic lymphocytic leukemia. History of Present Illness: This is a 80 year-old woman with chronic lymphocytic leukemia, Solis stage 0, but symptomatic. She was initially diagnosed with chronic lymphocytic leukemia 30 years ago, apparently by cervical lymph node biopsy. She had no treatment until 2011, when she was given a standard 4 week course of Rituxan. She had a very good response, but she did require treatment again in August 2014. At that time she was living in [place]. She had subsequently moved to [place], [place]. Her CBC from September 2015 showed elevated white count at 50,000 with differential showing 88% lymphocytes. The hemoglobin was normal at 13.5 g and the platelet count was normal at 170,000. A repeat CBC from 01/08/2016 showed the white count up to 85,000 with hemoglobin stable at 13.5 g and platelet count 181,000. I had seen her initially in January 2016. At that time she complained that she had been getting awfully tired. She reported having similar symptoms in the past when her white count was going up. She had been feeling okay otherwise. Her CBC at that time showed white count 78,000 with hemoglobin 12.8 g and platelet count 162,000. Her LDH was in the upper normal range at 235 U/L. A CLL prognostic panel by FISH was unrevealing. By objective evaluation her she still appeared to have early stage (Solis stage 0). However, she was showing fairly rapid progression, and she also appeared to be symptomatic. As such, she was offered the option of a trial therapy with ibrutinib. She started treatment in January 2016 at a standard dosage of 420 mg daily. Her lymphocyte count initially increased on the ibrutinib, as expected. Within a month it had started to come down, and it then continued to gradually decline. However, in September 2016 her ibrutinib was put on hold due to increasing fatigue, though at the time she did appeared to be showing a very good response to the treatment. She was then followed on observation/expectant management. She has additional history of portal vein thrombosis with associated esophageal varices. Her other medical illnesses include type II diabetes, GERD, and hypothyroidism. She is a nonsmoker. During followup she had developed a severe sinus infection. She eventually did have sinus surgery on 01/29/2018. Her clincical course was further complicated by Pseudomonas pneumonia. She had then continued further outpatient antibiotic coverage with meropenem, administered through a PICC line. She did have a complete recovery. She also had a repeat endoscopy procedure with Dr. Hernandez, and she apparently had 4 additional varices banded. She continued on observation/expectant management for the CLL. INTERIM HISTORY: As of her follow-up visit on 01/07/2019 her white count had increased to 101,000 with 91% lymphocytes. Hemoglobin had decreased slightly to 12.6 g. Her platelet count was still normal at 191,000. However, with the significant disease progression, I did talk to her about the possibility of restarting ibrutinib at a lower dosage. She was agreeable, but she preferred to delay it for least a few weeks. She then started ibrutinib on 01/26/2019 at a reduced dosage of 280 mg daily. As of her follow-up visit on 03/11/2019 she appeared to be tolerating it with acceptable toxicity and she was showing evidence of response. She then continued ibrutinib at 280 mg daily. As of her follow-up visit on 04/27/2020 she had developed mouth sores and fatigue, and I opted to decrease her ibrutinib dosage to 140 mg daily. As of her follow-up visit in July 2020 she appeared to be tolerating it well. In August 2020 she was diagnosed with COVID-19 virus infection. She had an initial hospitalization for 10 days, but following discharge her condition worsened again, requiring readmission and a more prolonged hospitalization. She eventually was able to return home, but with supplemental oxygen. As of her follow-up visit on 11/28/2020, she continued to have fairly marginal performance status, but she did show gradual recovery. She continued the ibrutinib at 140 mg daily. She is seen for a followup visit. She has been feeling pretty good generally. She says her energy is fairly good. She has continued physical therapy and Occupational Therapy, and she is able to do housework. Her ECOG score is 1. She has good appetite. She has no fever or night sweats. She has had no recurrence of sinusitis symptoms. She has not had sore mouth or throat. She does not complain of cough, shortness of breath, or chest pain. She has no GI or complaints. She does have some arthritis in her hands, but she does not have much pain with it. She does not complain of headache or dizziness, and she has no focal neurologic symptoms. Medications: Aldactone 2 (100 mg) Tablet Oral daily, Allopurinol 1 Tablet (of 300 mg) Oral daily, Carvedilol 1 Tablet (of 3.125 mg) Oral daily, Glimepiride 1 (2 mg) Tablet Oral daily, Imbruvica 1 (140 mg) Capsule Oral daily, Lantus 32 Units (of 100 Units/mL) Subcutaneous at bedtime, Levothroid 1 (175 mcg) Tablet Oral daily, Meloxicam 1 (15 mg) Tablet Oral daily, PriLOSEC 1 (40 mg) Capsule Delayed Release Oral daily Allergies: Codeine Sulfate Vital Signs: Performed on Sep 24, 2021 08:28 Height - 62.50 in Weight - 208.8 lbs (HIGH) BSA - 1.96 sq.m BMI - 37.58 (HIGH) Temperature - 97.5 F (LOW) Pulse - 95 /min Respiration - 18 /min BP - 144/82 mm(hg) (HIGH) O2 Sat - 95 % (LOW) Pain - 0 Fatigue - 5 Physical Examination: Constitutional - She looks pretty good generally, Eyes - Sclerae nonicteric. Conjunctivae clear, ENMT - No lesions noted in the oral cavity, Hematologic/Lymphatic - No cervical, clavicular, or axillary adenopathy, Respiratory - Lungs sound clear, Cardiovascular - Heart rhythm is irregular. The rate is controlled. There is a II/ systolic murmur. There is no gallop or rub noted, Abdomen - Soft. Liver and spleen are not enlarged. There is no abdominal mass or ascites noted and there is no inguinal adenopathy, Extremities - There are venous stasis changes bilaterally. There is no edema, Neurologic - No focal neurologic deficits noted. Lab/Imaging: Test performed on Sep 03, 2021 08:27 WBC 4.7 10^9/L RBC 4.72 10^12/L HGB 13.2 g/dL HCT 41.7 % MCV 88.2 fl MCH 27.9 pg MCHC 31.7 g/dL RDW 15.5 % Platelet Count 170 10^9/L Neutrophils (Gran) 2.6 10^9/L Lymphocytes 0.4 10^9/L Problem List: 1. Chronic leukocytic leukemia, diagnosed at least 30 years ago. I had seen her initially in January 2016. By objective assessment, she had early stage disease (Solis stage 0), but it did appear to be symptomatic, and it appeared to be progressing fairly rapidly. 2. In 2017 she required treatment for Pseudomonas sinus infection and pneumonia, and she underwent sinus surgery in January 2018. 3. She has a history of portal vein thrombosis with associated portal hypertension/esophageal varices. 4. Type II diabetes. 5. Hypothyroidism. 6. GERD. 7. She was diagnosed with COVID-19 virus infection in August 2020. Problems Addressed with this Encounter and Plan: Patient with chronic leukocytic leukemia, diagnosed at least 30 years ago. I had seen her initially in January 2016. By objective assessment, she had early stage disease (Solis stage 0), but it did appear to be symptomatic, and it appeared to be progressing fairly rapidly. She had previously responded well to treatment with rituximab, but with relatively short-term response. In January 2016 she began a trial of therapy with ibrutinib. She had a good response, but she did require dose reductions due to side effects. As of April 2020 she had a further dose reduction to 140 mg daily. She has been able to tolerate it well at that dosage, and her blood counts have remained stable in normal range. She had a significant decline in her performance status associated with COVID-19 virus infection in August 2020, but she has had gradual recovery. Thus far during follow-up there has been no evidence of progression of the chronic lymphocytic leukemia. She continues ibrutinib at 140 mg daily. I will see her again in 3 months. Signed By: Noah Peters M.D. <<Signature on File>>
== END 2021-09-24 08:14 | disposition home or self-care (01) ==
LOC: ONCMED 08:16
PROVIDERS: PCP Family Medicine; Visit Provider Internal Medicine Medical Oncology
DX: C91.10 Chronic lymphocytic leukemia of B-cell type not having achieved remission (principal); I81 Portal vein thrombosis; K76.6 Portal hypertension; I85.00 Esophageal varices without bleeding; E11.9 Type 2 diabetes mellitus without complications; E03.9 Hypothyroidism, unspecified; K21.9 Gastro-esophageal reflux disease without esophagitis; Z86.16 Personal history of COVID-19; Z79.899 Other long term (current) drug therapy
CPT/HCPCS: 99214

== ENCOUNTER 2022-01-03 12:00 | Outpatient (CLI) | payer MEDICARE, OTHER, SELFPAY ==
[2022-01-03 12:38] LABS: Basophils % 0.5 %; Eosinophils # 0.1 10^3/uL (0.0-0.8); Eosinophils % 1.2 %; Hematocrit 48.6 % (37.0-47.0); Hemoglobin 15.3 g/dL (11.5-15.3); Lymphocytes # 1.8 10^3/uL (0.8-4.8); Lymphocytes % 23.8 %; Mean Corpuscular HGB Conc 31.5 g/dL (30.0-36.0); Mean Corpuscular Hemoglobin 29.1 pg (28.0-34.0); Mean Corpuscular Volume 92.6 fl (81-99); Mean Platelet Volume 12.6 fL (7.4-10.4); Monocytes # 0.7 10^3/uL (0.2-0.9); Monocytes % 8.6 %; Neutrophils # 4.87 10^3/uL (1.8-7.7); Neutrophils % 64.6 %; Nucleated Red Blood Cells % 0 %; Platelet Count 165 10^3/cmm (130-400); Red Blood Count 5.25 10^6/uL (4.1-5.3); Red Cell Distribution Width 14.5 % (12.1-15.1); White Blood Count 7.6 10^3/uL (4.0-10.0)
[2022-01-03 13:08] LABS: Alanine Aminotransferase 31 U/L (0-33); Albumin Level 4.1 g/dL (3.5-5.2); Alkaline Phosphatase 206 IU/L (35-105); Anion Gap 14.2 (5-19); Aspartate Amino Transferase 32 U/L (0-32); Blood Urea Nitrogen 34 mg/dL (8-23); Calcium 8.7 mg/dL (8.5-10.5); Carbon Dioxide 29 mmol/L (22-29); Chloride 95 mmol/L (98-107); Lactate Dehydrogenase 164 U/L (135-214); Osmolality Calculated 309 mOsm/kg (285-295); Potassium 5.2 mmol/L (3.5-5.1); Sodium 133 mmol/L (136-145); Total Bilirubin 0.8 mg/dL (0.15-1.2); Total Protein 6.1 g/dL (6.6-8.7)
[2022-01-03 13:09] LABS: Glucose 564 mg/dL (65-115)
== END 2022-01-03 12:01 | disposition home or self-care (01) ==
PROVIDERS: PCP Family Medicine; Visit Provider Internal Medicine Medical Oncology
DX: C91.10 Chronic lymphocytic leukemia of B-cell type not having achieved remission (principal); K76.6 Portal hypertension; I85.00 Esophageal varices without bleeding; E11.9 Type 2 diabetes mellitus without complications; E03.9 Hypothyroidism, unspecified; K21.9 Gastro-esophageal reflux disease without esophagitis; Z86.718 Personal history of other venous thrombosis and embolism; Z86.16 Personal history of COVID-19; Z79.899 Other long term (current) drug therapy
CPT/HCPCS: 36415; 80053; 83615; 85025; 99214

== ENCOUNTER 2022-04-03 11:44 | Oncology outpatient (recurring) (ONCR) | payer MEDICARE, OTHER, SELFPAY ==
[2022-04-03 12:41] LABS: Basophils % 0.5 %; Eosinophils # 0.2 10^3/uL (0.0-0.8); Eosinophils % 1.8 %; Hematocrit 44.6 % (37.0-47.0); Lymphocytes # 1.3 10^3/uL (0.8-4.8); Lymphocytes % 15.2 %; Mean Corpuscular HGB Conc 31.4 g/dL (30.0-36.0); Mean Corpuscular Hemoglobin 29.7 pg (28.0-34.0); Mean Corpuscular Volume 94.7 fl (81-99); Mean Platelet Volume 12.5 fL (7.4-10.4); Monocytes # 0.5 10^3/uL (0.2-0.9); Monocytes % 6.1 %; Neutrophils # 6.24 10^3/uL (1.8-7.7); Neutrophils % 75.2 %; Nucleated Red Blood Cells % 0 %; Platelet Count 180 10^3/cmm (130-400); Red Blood Count 4.71 10^6/uL (4.1-5.3); Red Cell Distribution Width 15.4 % (12.1-15.1); White Blood Count 8.3 10^3/uL (4.0-10.0)
== END 2022-04-23 23:59 | disposition home or self-care (01) ==
PROVIDERS: Nurse Practitioner Family; PCP Family Medicine; Referring Provider Family Medicine; Visit Provider Internal Medicine Medical Oncology
DX: C91.10 Chronic lymphocytic leukemia of B-cell type not having achieved remission (principal); Z79.899 Other long term (current) drug therapy; Z92.25 Personal history of immunosuppression therapy
CPT/HCPCS: 36415; 85025; 99214; 99999

== ENCOUNTER 2022-10-16 12:40 | Oncology outpatient (recurring) (ONCR) | payer MEDICARE, OTHER, SELFPAY ==
[2022-10-16 13:03] LABS: Basophils % 0.5 %; Eosinophils # 0.1 10^3/uL (0.0-0.8); Eosinophils % 1.2 %; Hematocrit 47.4 % (37.0-47.0); Hemoglobin 14.8 g/dL (11.5-15.3); Lymphocytes # 2.1 10^3/uL (0.8-4.8); Lymphocytes % 24.4 %; Mean Corpuscular HGB Conc 31.2 g/dL (30.0-36.0); Mean Corpuscular Hemoglobin 29.7 pg (28.0-34.0); Mean Corpuscular Volume 95.2 fl (81-99); Mean Platelet Volume 12.1 fL (7.4-10.4); Monocytes # 0.7 10^3/uL (0.2-0.9); Monocytes % 8.1 %; Neutrophils # 5.63 10^3/uL (1.8-7.7); Neutrophils % 65.3 %; Nucleated Red Blood Cells % 0 %; Platelet Count 183 10^3/cmm (130-400); Red Blood Count 4.98 10^6/uL (4.1-5.3); Red Cell Distribution Width 14.9 % (12.1-15.1); White Blood Count 8.6 10^3/uL (4.0-10.0)
[2022-10-16 13:25] LABS: Alanine Aminotransferase 26 U/L (0-33); Albumin Level 3.9 g/dL (3.5-5.2); Alkaline Phosphatase 134 U/L (35-105); Anion Gap 14.6 (5-19); Aspartate Amino Transferase 27 U/L (0-32); Blood Urea Nitrogen 42 mg/dL (8-23); Calcium 9.5 mg/dL (8.5-10.5); Carbon Dioxide 29 mmol/L (22-29); Chloride 104 mmol/L (98-107); Globulin 2.6 g/dL (1.3-4.6); Glucose 243 mg/dL (65-115); Lactate Dehydrogenase 224 U/L (135-214); Osmolality Calculated 315 mOsm/kg (285-295); Potassium 4.6 mmol/L (3.5-5.1); Sodium 143 mmol/L (136-145); Total Bilirubin 0.8 mg/dL (0.15-1.2); Total Protein 6.5 g/dL (6.6-8.7)
== END 2022-10-23 23:59 | disposition home or self-care (01) ==
PROVIDERS: PCP Family Medicine; Referring Provider Family Medicine; Visit Provider Internal Medicine Medical Oncology
DX: C91.10 Chronic lymphocytic leukemia of B-cell type not having achieved remission (principal); Z79.899 Other long term (current) drug therapy; Z92.25 Personal history of immunosuppression therapy
CPT/HCPCS: 80053; 83615; 85025; 99214

== ENCOUNTER 2023-04-17 12:36 | Oncology outpatient (recurring) (ONCR) | payer MEDICARE, OTHER, SELFPAY ==
[2023-04-17 13:07] LABS: Basophils % 0.3 %; Eosinophils # 0.1 10^3/uL (0.0-0.8); Eosinophils % 0.7 %; Hematocrit 48.5 % (37.0-47.0); Hemoglobin 15.3 g/dL (11.5-15.3); Lymphocytes # 1.7 10^3/uL (0.8-4.8); Mean Corpuscular HGB Conc 31.5 g/dL (30.0-36.0); Mean Corpuscular Hemoglobin 29.9 pg (28.0-34.0); Mean Corpuscular Volume 94.7 fl (81-99); Mean Platelet Volume 12.2 fL (7.4-10.4); Monocytes % 11.1 %; Neutrophils # 5.81 10^3/uL (1.8-7.7); Neutrophils % 67.1 %; Nucleated Red Blood Cells % 0 %; Platelet Count 152 10^3/cmm (130-400); Red Blood Count 5.12 10^6/uL (4.1-5.3); Red Cell Distribution Width 15.4 % (12.1-15.1); White Blood Count 8.7 10^3/uL (4.0-10.0)
[2023-04-17 13:21] LABS: Alanine Aminotransferase 33 U/L (0-33); Albumin Level 3.9 g/dL (3.5-5.2); Alkaline Phosphatase 175 U/L (35-105); Anion Gap 17.7 (5-19); Aspartate Amino Transferase 36 U/L (0-32); Blood Urea Nitrogen 30 mg/dL (8-23); Carbon Dioxide 25 mmol/L (22-29); Chloride 100 mmol/L (98-107); Globulin 2.4 g/dL (1.3-4.6); Glucose 300 mg/dL (65-115); Lactate Dehydrogenase 218 U/L (135-214); Osmolality Calculated 303 mOsm/kg (285-295); Potassium 4.7 mmol/L (3.5-5.1); Sodium 138 mmol/L (136-145); Total Protein 6.3 g/dL (6.6-8.7)
== END 2023-04-23 23:59 | disposition home or self-care (01) ==
PROVIDERS: PCP Family Medicine; Referring Provider Family Medicine; Visit Provider Internal Medicine Medical Oncology
DX: C91.10 Chronic lymphocytic leukemia of B-cell type not having achieved remission (principal); Z79.899 Other long term (current) drug therapy; Z92.25 Personal history of immunosuppression therapy; R74.01 Elevation of levels of liver transaminase levels; E80.7 Disorder of bilirubin metabolism, unspecified
CPT/HCPCS: 36415; 80053; 83615; 85025; 99214

== ENCOUNTER 2023-07-14 09:19 | Oncology outpatient (recurring) (ONCR) | payer MEDICARE, OTHER, SELFPAY ==
[2023-07-14 09:39] VITALS: BP 163/83; PULSE 101; RESP 18; TEMP 36.6; O2SAT 92
[2023-07-14 09:53] LABS: Basophils % 0.3 %; Eosinophils # 0.1 10^3/uL (0.0-0.8); Eosinophils % 0.8 %; Hematocrit 46.7 % (37.0-47.0); Hemoglobin 14.5 g/dL (11.5-15.3); Lymphocytes # 1.5 10^3/uL (0.8-4.8); Lymphocytes % 12.9 %; Mean Corpuscular Hemoglobin 29.5 pg (28.0-34.0); Mean Corpuscular Volume 94.9 fl (81-99); Mean Platelet Volume 12.3 fL (7.4-10.4); Monocytes # 0.7 10^3/uL (0.2-0.9); Monocytes % 5.8 %; Neutrophils # 9.47 10^3/uL (1.8-7.7); Neutrophils % 79.4 %; Nucleated Red Blood Cells % 0 %; Platelet Count 192 10^3/cmm (130-400); Red Blood Count 4.92 10^6/uL (4.1-5.3); Red Cell Distribution Width 15.3 % (12.1-15.1); White Blood Count 11.9 10^3/uL (4.0-10.0)
[2023-07-14 10:08] LABS: Alanine Aminotransferase 27 U/L (0-33); Albumin Level 4.4 g/dL (3.5-5.2); Alkaline Phosphatase 147 U/L (35-105); Anion Gap 13.4 (5-19); Aspartate Amino Transferase 30 U/L (0-32); Blood Urea Nitrogen 40 mg/dL (8-23); Calcium 9.2 mg/dL (8.5-10.5); Carbon Dioxide 34 mmol/L (22-29); Chloride 99 mmol/L (98-107); Globulin 2.1 g/dL (1.3-4.6); Glucose 146 mg/dL (65-115); Lactate Dehydrogenase 208 U/L (135-214); Osmolality Calculated 306 mOsm/kg (285-295); Potassium 4.4 mmol/L (3.5-5.1); Sodium 142 mmol/L (136-145); Total Bilirubin 1.1 mg/dL (0.15-1.2); Total Protein 6.5 g/dL (6.6-8.7)
== END 2023-07-24 23:59 | disposition home or self-care (01) ==
PROVIDERS: PCP Family Medicine; Referring Provider Family Medicine; Visit Provider Internal Medicine Medical Oncology
DX: C91.10 Chronic lymphocytic leukemia of B-cell type not having achieved remission (principal); Z79.899 Other long term (current) drug therapy; Z92.25 Personal history of immunosuppression therapy; R53.0 Neoplastic (malignant) related fatigue; Z92.21 Personal history of antineoplastic chemotherapy
CPT/HCPCS: 36415; 80053; 83615; 85025; 99214

== ENCOUNTER 2023-11-06 11:12 | Oncology outpatient (recurring) (ONCR) | payer MEDICARE, OTHER, SELFPAY ==
[2023-11-06 12:10] VITALS: BP 153/77; PULSE 88; RESP 16; TEMP 36.6; O2SAT 98
[2023-11-06 12:23] LABS: Basophils % 0.5 %; Eosinophils # 0.1 10^3/uL (0.0-0.8); Hematocrit 47.5 % (36-47); Lymphocytes # 1.7 10^3/uL (0.8-4.8); Lymphocytes % 19.2 %; Mean Corpuscular HGB Conc 30.3 g/dL (30-55); Mean Corpuscular Volume 95.6 fl (85-98); Mean Platelet Volume 11.6 fL (7.4-10.4); Monocytes # 0.7 10^3/uL (0.2-0.9); Monocytes % 7.9 %; Neutrophils # 6.07 10^3/uL (1.8-7.7); Neutrophils % 70.4 %; Nucleated Red Blood Cells % 0 %; Platelet Count 178 10^3/cmm (157-399); Red Blood Count 4.97 10^6/uL (3.85-5.65); White Blood Count 8.63 10^3/uL (3.29-11.43)
[2023-11-06 12:41] LABS: Alanine Aminotransferase 24 U/L (0-33); Albumin Level 3.7 g/dL (3.5-5.2); Alkaline Phosphatase 170 U/L (35-105); Aspartate Amino Transferase 28 U/L (0-32); Blood Urea Nitrogen 28 mg/dL (8-23); Carbon Dioxide 32 mmol/L (22-29); Chloride 99 mmol/L (98-107); Globulin 2.4 g/dL (1.3-4.6); Glucose 317 mg/dL (65-115); Osmolality Calculated 306 mOsm/kg (285-295); Sodium 139 mmol/L (136-145); Total Protein 6.1 g/dL (6.6-8.7)
[2023-11-06 12:44] LABS: Anion Gap 12.4 (5-19); Lactate Dehydrogenase 199 U/L (135-214); Potassium 4.4 mmol/L (3.5-5.1)
== END 2023-11-23 23:59 | disposition home or self-care (01) ==
PROVIDERS: Internal Medicine Medical Oncology; PCP Family Medicine; Referring Provider Family Medicine; Visit Provider Internal Medicine Medical Oncology
DX: C91.10 Chronic lymphocytic leukemia of B-cell type not having achieved remission (principal); Z79.899 Other long term (current) drug therapy; Z92.25 Personal history of immunosuppression therapy
CPT/HCPCS: 36415; 80053; 83615; 85025; 99214

== ENCOUNTER 2023-11-20 10:09 | Outpatient (CLI) | payer MEDICARE, OTHER, SELFPAY ==
--- NOTE | 2023-11-20 10:30 | CTR_ITS ---
PROCEDURE INFORMATION: Exam: CTA Chest With Contrast Exam date and time: 11/20/2023 10:30 AM Age: 82 years old Clinical indication: Shortness of breath; Prior surgery; Surgery date: 6+ months; Surgery type: Gb; Patient HX: HX of ccl TECHNIQUE: Imaging protocol: Computed tomographic angiography of the chest with contrast. Exam focused on the arteries. 3D rendering (Not supervised by radiologist): MIP and/or 3D reconstructed images were created by the technologist. Radiation optimization: All CT scans at this facility use at least one of these dose optimization techniques: automated exposure control; mA and/or kV adjustment per patient size (includes targeted exams where dose is matched to clinical indication); or iterative reconstruction. Contrast material: OMNI 350; Contrast volume: 95 ml; Contrast route: INTRAVENOUS (IV); REPORTING DATA: Count of CT and Cardiac NM exams in prior 12 months: This patient has received 0 known CTs and 0 known cardiac nuclear medicine studies in the 12 months prior to the current study. COMPARISON: CT abdpel wo/w [id number] 02/03/2017 1:36 PM RADIATION DOSE METRICS: Total DLP (mGy-cm): 377.87 FINDINGS: Pulmonary arteries: Pulmonary arterial dilatation with the main trunk measuring up to 4.1 cm in diameter. Acute nonocclusive right segmental/subsegmental middle lobe pulmonary arterial embolus, axial image 101 of series 7. Thin linear web-like filling defect at the right lower lobe segmental artery is similar to January 2017 in keeping with chronic sequela of prior emboli, likely web. More acute appearing small nonocclusive embolus at the right lower lobe posterior basal segmental artery on axial image 121 of series 7. Thin linear web-like filling defect a left lower lobe basal subsegmental artery on axial image 118 of series 7 may be chronic. Aorta: Mild systemic atherosclerotic calcification without aortic aneurysm. Lungs: Mild dependent atelectasis. Bilateral patchy mosaic attenuation. No consolidation. Calcified granulomata at the left lower lobe. Pleural spaces: Unremarkable. No pneumothorax. No pleural effusion. Heart: No cardiomegaly. No pericardial effusion. Heart RV/LV ratio: RV/LV ratio measures 0.88. Lymph nodes: No enlarged lymph nodes. Calcified mediastinal and left hilar lymph nodes in keeping with sequela of old granulomatous disease. Diaphragm: Small hiatal hernia. Liver: Nodular hepatic contour. Tiny hepatic calcifications in keeping with sequela of old granulomatous disease. Gallbladder and bile ducts: Prior cholecystectomy. Spleen: Partially visualized spleen suspected to be enlarged. Tiny splenic calcifications in keeping with sequela of old granulomatous disease. Intraperitoneal space: Mild upper abdominal collaterals with extension to paraesophageal varices. Bones/joints: No acute fracture. Mild degenerative changes along the spine and shoulders. Soft tissues: Unremarkable. CT/CT angio chest PE protcl [id number] IMPRESSION: 1. Mild acute nonocclusive right pulmonary emboli greatest involving the right middle lobe. No evidence of right heart strain. 2. More chronic mild web-like filling defects at the cjlfg-[id number]-dlhp-left lower lobes. 3. Bilateral patchy mosaic lung attenuation may be partially related to expiratory phase imaging. Could also be related to chronic thromboembolic disease and pulmonary hypertension with significant pulmonary arterial dilatation. 4. Cirrhotic liver morphology with stigmata of portal hypertension.
[2023-11-20] MEDS: iohexol 350 mg/mL 500 mL Btl (per mL) IV (10:43)
== END 2023-11-20 10:10 | disposition home or self-care (01) ==
LOC: RAD 10:10
PROVIDERS: PCP Family Medicine; Visit Provider Internal Medicine Medical Oncology
DX: I26.99 Other pulmonary embolism without acute cor pulmonale (principal); R06.02 Shortness of breath; R91.8 Other nonspecific abnormal finding of lung field
CPT/HCPCS: 71275; Q9967

== ENCOUNTER 2024-02-10 12:23 | Oncology outpatient (recurring) (ONCR) | payer MEDICARE, OTHER, SELFPAY ==
[2024-02-10 13:00] LABS: Basophils # 0.1 10^3/uL (0.0-0.1); Basophils % 0.6 %; Eosinophils # 0.1 10^3/uL (0.0-0.8); Eosinophils % 0.8 %; Hematocrit 47.3 % (36-47); Lymphocytes # 2.8 10^3/uL (0.8-4.8); Lymphocytes % 23.3 %; Mean Corpuscular HGB Conc 31.3 g/dL (30-55); Mean Corpuscular Hemoglobin 29.7 pg (27-33); Mean Corpuscular Volume 94.8 fl (85-98); Mean Platelet Volume 12.1 fL (7.4-10.4); Monocytes # 0.9 10^3/uL (0.2-0.9); Monocytes % 7.8 %; Neutrophils # 7.86 10^3/uL (1.8-7.7); Neutrophils % 65.7 %; Nucleated Red Blood Cells % 0 %; Platelet Count 241 10^3/cmm (157-399); Red Blood Count 4.99 10^6/uL (3.85-5.65); Red Cell Distribution Width 15.4 % (12.1-15.1); White Blood Count 11.97 10^3/uL (3.29-11.43)
[2024-02-10 13:26] LABS: Alanine Aminotransferase 25 U/L (0-33); Albumin Level 3.9 g/dL (3.5-5.2); Alkaline Phosphatase 176 U/L (35-105); Aspartate Amino Transferase 26 U/L (0-32); Blood Urea Nitrogen 29 mg/dL (8-23); Calcium 8.9 mg/dL (8.5-10.5); Carbon Dioxide 29 mmol/L (22-29); Chloride 97 mmol/L (98-107); Globulin 2.1 g/dL (1.3-4.6); Glucose 165 mg/dL (65-115); Osmolality Calculated 294 mOsm/kg (285-295); Sodium 137 mmol/L (136-145); Total Bilirubin 0.8 mg/dL (0.15-1.2)
== END 2024-02-22 23:59 | disposition home or self-care (01) ==
PROVIDERS: PCP Family Medicine; Referring Provider Family Medicine; Visit Provider Internal Medicine Medical Oncology
DX: C91.10 Chronic lymphocytic leukemia of B-cell type not having achieved remission (principal); Z79.899 Other long term (current) drug therapy; Z79.01 Long term (current) use of anticoagulants; Z92.25 Personal history of immunosuppression therapy
CPT/HCPCS: 36415; 80053; 85025; 99214

== ENCOUNTER 2024-05-19 12:03 | Oncology outpatient (recurring) (ONCR) | payer MEDICARE, OTHER, SELFPAY ==
[2024-05-19 12:45] LABS: Basophils # 0.1 10^3/uL (0.0-0.1); Basophils % 0.6 %; Eosinophils # 0.2 10^3/uL (0.0-0.8); Eosinophils % 1.2 %; Hematocrit 39.7 % (36-47); Lymphocytes % 23.8 %; Mean Corpuscular HGB Conc 30.5 g/dL (30-55); Mean Corpuscular Hemoglobin 29.5 pg (27-33); Mean Corpuscular Volume 96.8 fl (85-98); Mean Platelet Volume 12.2 fL (7.4-10.4); Monocytes # 1.2 10^3/uL (0.2-0.9); Monocytes % 9.9 %; Neutrophils # 7.74 10^3/uL (1.8-7.7); Neutrophils % 62.1 %; Nucleated Red Blood Cells % 0 %; Platelet Count 246 10^3/cmm (157-399); Red Cell Distribution Width 16.1 % (12.1-15.1); White Blood Count 12.45 10^3/uL (3.29-11.43)
[2024-05-19 13:09] LABS: Alanine Aminotransferase 18 U/L (0-33); Albumin Level 3.5 g/dL (3.5-5.2); Alkaline Phosphatase 151 U/L (35-105); Anion Gap 15.7 (5-19); Aspartate Amino Transferase 17 U/L (0-32); Blood Urea Nitrogen 23 mg/dL (8-23); Calcium 8.8 mg/dL (8.5-10.5); Carbon Dioxide 31 mmol/L (22-29); Chloride 97 mmol/L (98-107); Globulin 2.3 g/dL (1.3-4.6); Glucose 190 mg/dL (65-115); Osmolality Calculated 297 mOsm/kg (285-295); Potassium 4.7 mmol/L (3.5-5.1); Sodium 139 mmol/L (136-145); Total Bilirubin 2.2 mg/dL (0.15-1.2); Total Protein 5.8 g/dL (6.6-8.7)
[2024-05-19 13:20] LABS: Lactate Dehydrogenase 283 U/L (135-214)
== END 2024-05-23 23:59 | disposition home or self-care (01) ==
PROVIDERS: PCP Family Medicine; Referring Provider Family Medicine; Visit Provider Internal Medicine Medical Oncology
DX: C91.10 Chronic lymphocytic leukemia of B-cell type not having achieved remission (principal); Z79.899 Other long term (current) drug therapy; Z79.01 Long term (current) use of anticoagulants; Z92.25 Personal history of immunosuppression therapy; Z53.9 Procedure and treatment not carried out, unspecified reason
CPT/HCPCS: 36415; 80053; 83615; 85025; 99214

== ENCOUNTER 2024-05-26 14:14 | Oncology outpatient (recurring) (ONCR) | payer MEDICARE, OTHER, SELFPAY ==
--- NOTE | 2024-05-26 14:30 | XR_ITS ---
WS: [id number] SCREENING DEXA SCAN [employer] CLINICAL INFORMATION: post menopausal COMPARISON: None. FINDINGS: The L1-L4 bone mineral density measures 1.156 g/cm2. This corresponds to a T score score of -0.2 and Z score of 0.7. Left femoral neck bone mineral density measures 0.824 g/cm2. This corresponds to a T score of -1.5 an d Z score of -0.1. Right femoral neck bone mineral density measures 0.824 g/cm2. This corresponds to a T score -1.5of an d Z score of -0.1. Mean femoral neck bone mineral density measures 0.824 g/cm2. This corresponds to a T score of -1.5 an d Z score of -0.1. XR/XR DEXA axial skeleton* [id number] IMPRESSION: Normal bone mineralization lumbar spine. Osteopenia femoral necks. Patient's FRAX calculated 10 year probability for major osteoporotic fracture i s 16.4% and osteoporotic hip fracture is 5.4%.
== END 2024-06-23 23:59 | disposition home or self-care (01) ==
PROVIDERS: PCP Family Medicine; Referring Provider Family Medicine; Visit Provider Internal Medicine Medical Oncology
DX: Z78.0 Asymptomatic menopausal state; M85.852 Other specified disorders of bone density and structure, left thigh; M85.851 Other specified disorders of bone density and structure, right thigh
CPT/HCPCS: 77080

== ENCOUNTER 2024-08-24 11:50 | Oncology outpatient (recurring) (ONCR) | payer MEDICARE, OTHER, SELFPAY ==
[2024-08-24 12:29] LABS: Basophils % 0.4 %; Eosinophils # 0.1 10^3/uL (0.0-0.8); Eosinophils % 0.8 %; Hematocrit 50.5 % (36-47); Lymphocytes # 2.8 10^3/uL (0.8-4.8); Mean Corpuscular HGB Conc 30.9 g/dL (30-55); Mean Corpuscular Hemoglobin 28.1 pg (27-33); Mean Platelet Volume 12.4 fL (7.4-10.4); Monocytes # 0.8 10^3/uL (0.2-0.9); Monocytes % 7.1 %; Neutrophils # 7.07 10^3/uL (1.8-7.7); Neutrophils % 65.2 %; Nucleated Red Blood Cells % 0 %; Platelet Count 209 10^3/cmm (157-399); Red Blood Count 5.55 10^6/uL (3.85-5.65); Red Cell Distribution Width 16.3 % (12.1-15.1); White Blood Count 10.84 10^3/uL (3.29-11.43)
[2024-08-24 12:47] LABS: Alanine Aminotransferase 31 U/L (0-33); Albumin Level 3.7 g/dL (3.5-5.2); Alkaline Phosphatase 224 U/L (35-105); Anion Gap 14.8 (5-19); Aspartate Amino Transferase 32 U/L (0-32); Blood Urea Nitrogen 22 mg/dL (8-23); Calcium 8.8 mg/dL (8.5-10.5); Carbon Dioxide 29 mmol/L (22-29); Chloride 103 mmol/L (98-107); Globulin 2.4 g/dL (1.3-4.6); Glucose 197 mg/dL (65-115); Lactate Dehydrogenase 185 U/L (135-214); Osmolality Calculated 303 mOsm/kg (285-295); Potassium 4.8 mmol/L (3.5-5.1); Sodium 142 mmol/L (136-145); Total Bilirubin 0.9 mg/dL (0.15-1.2); Total Protein 6.1 g/dL (6.6-8.7)
== END 2024-09-23 23:59 | disposition home or self-care (01) ==
PROVIDERS: Nurse Practitioner Family; PCP Family Medicine; Referring Provider Family Medicine; Visit Provider Internal Medicine Medical Oncology
DX: C91.10 Chronic lymphocytic leukemia of B-cell type not having achieved remission; Z79.899 Other long term (current) drug therapy; Z79.01 Long term (current) use of anticoagulants; R74.8 Abnormal levels of other serum enzymes
CPT/HCPCS: 36415; 80053; 83615; 85025; 99214

== ENCOUNTER 2024-11-30 12:23 | Oncology outpatient (recurring) (ONCR) | payer MEDICARE, OTHER, SELFPAY ==
[2024-11-30 13:06] LABS: Basophils % 0.3 %; Eosinophils # 0.1 10^3/uL (0.0-0.8); Hematocrit 48.1 % (36-47); Lymphocytes # 2.7 10^3/uL (0.8-4.8); Lymphocytes % 23.9 %; Mean Corpuscular HGB Conc 30.4 g/dL (30-55); Mean Corpuscular Volume 92.3 fl (85-98); Mean Platelet Volume 12.2 fL (7.4-10.4); Monocytes # 0.7 10^3/uL (0.2-0.9); Monocytes % 5.9 %; Neutrophils # 7.72 10^3/uL (1.8-7.7); Neutrophils % 68.2 %; Nucleated Red Blood Cells % 0 %; Platelet Count 190 10^3/cmm (157-399); Red Blood Count 5.21 10^6/uL (3.85-5.65); Red Cell Distribution Width 15.5 % (12.1-15.1); White Blood Count 11.32 10^3/uL (3.29-11.43)
[2024-11-30 13:40] LABS: Alanine Aminotransferase 17 U/L (0-33); Albumin Level 3.5 g/dL (3.5-5.2); Alkaline Phosphatase 188 U/L (35-105); Anion Gap 15.4 (5-19); Aspartate Amino Transferase 23 U/L (0-32); Blood Urea Nitrogen 25 mg/dL (8-23); Carbon Dioxide 28 mmol/L (22-29); Chloride 102 mmol/L (98-107); Creatinine Clr Calc Pharmacy 46.8264; Globulin 2.1 g/dL (1.3-4.6); Glucose 242 mg/dL (65-115); Lactate Dehydrogenase 231 U/L (135-214); Osmolality Calculated 304 mOsm/kg (285-295); Potassium 4.4 mmol/L (3.5-5.1); Sodium 141 mmol/L (136-145); Total Bilirubin 0.8 mg/dL (0.15-1.2); Total Protein 5.6 g/dL (6.6-8.7)
== END 2024-12-24 23:59 | disposition home or self-care (01) ==
PROVIDERS: PCP Family Medicine; Referring Provider Family Medicine; Visit Provider Internal Medicine Medical Oncology
DX: C91.10 Chronic lymphocytic leukemia of B-cell type not having achieved remission (principal); Z79.899 Other long term (current) drug therapy; Z79.01 Long term (current) use of anticoagulants; Z78.0 Asymptomatic menopausal state
CPT/HCPCS: 36415; 80053; 83615; 85025; 99214

== ENCOUNTER 2025-02-28 10:38 | Oncology outpatient (recurring) (ONCR) | payer MEDICARE, OTHER, SELFPAY ==
[2025-02-28 10:57] LABS: Basophils % 0.4 %; Eosinophils # 0.1 10^3/uL (0.0-0.8); Eosinophils % 1.2 %; Hematocrit 48.1 % (36-47); Mean Corpuscular Hemoglobin 28.8 pg (27-33); Mean Corpuscular Volume 92.9 fl (85-98); Monocytes # 0.7 10^3/uL (0.2-0.9); Monocytes % 8.2 %; Neutrophils # 5.24 10^3/uL (1.8-7.7); Neutrophils % 64.5 %; Nucleated Red Blood Cells % 0 %; Platelet Count 174 10^3/cmm (157-399); Red Blood Count 5.18 10^6/uL (3.85-5.65); Red Cell Distribution Width 15.8 % (12.1-15.1); White Blood Count 8.13 10^3/uL (3.29-11.43)
[2025-02-28 11:14] LABS: Alanine Aminotransferase 58 U/L (0-33); Albumin Level 3.6 g/dL (3.5-5.2); Alkaline Phosphatase 204 U/L (35-105); Anion Gap 12.8 (5-19); Aspartate Amino Transferase 53 U/L (0-32); Blood Urea Nitrogen 30 mg/dL (8-23); Carbon Dioxide 28 mmol/L (22-29); Chloride 107 mmol/L (98-107); Creatinine Clr Calc Pharmacy 46.8714; Glucose 162 mg/dL (65-115); Osmolality Calculated 306 mOsm/kg (285-295); Potassium 4.8 mmol/L (3.5-5.1); Sodium 143 mmol/L (136-145); Total Bilirubin 0.9 mg/dL (0.15-1.2); Total Protein 5.6 g/dL (6.6-8.7)
== END 2025-03-23 23:59 | disposition home or self-care (01) ==
PROVIDERS: PCP Family Medicine; Referring Provider Family Medicine; Visit Provider Internal Medicine Medical Oncology
DX: C91.10 Chronic lymphocytic leukemia of B-cell type not having achieved remission (principal); Z79.899 Other long term (current) drug therapy; Z79.01 Long term (current) use of anticoagulants; R03.0 Elevated blood-pressure reading, without diagnosis of hypertension; Z86.73 Personal history of transient ischemic attack (TIA), and cerebral infarction without residual deficits
CPT/HCPCS: 36415; 80053; 85025; 99214

== ENCOUNTER 2025-05-30 12:16 | Oncology outpatient (recurring) (ONCR) | payer MEDICARE, OTHER, SELFPAY ==
[2025-05-30 12:54] LABS: Hematocrit 50.9 % (36-47); Hemoglobin 15.60 g/dL (11.27-16.99); Mean Corpuscular HGB Conc 30.6 g/dL (30-55); Mean Corpuscular Hemoglobin 28.9 pg (27-33); Mean Corpuscular Volume 94.3 fl (85-98); Nucleated Red Blood Cells % 0 %; Platelet Count 221 10^3/cmm (157-399); Red Blood Count 5.40 10^6/uL (3.85-5.65); White Blood Count 12.44 10^3/uL (3.29-11.43)
[2025-05-30 13:19] LABS: Alanine Aminotransferase 37 U/L (0-33); Albumin Level 3.8 g/dL (3.5-5.2); Alkaline Phosphatase 227 U/L (35-105); Anion Gap 11.1 (5-19); Aspartate Amino Transferase 52 U/L (0-32); Blood Urea Nitrogen 29 mg/dL (8-23); Calcium 9.8 mg/dL (8.5-10.5); Carbon Dioxide 33 mmol/L (22-29); Chloride 103 mmol/L (98-107); Creatinine Clr Calc Pharmacy 39.1629; Globulin 2.5 g/dL (1.3-4.6); Glucose 59 mg/dL (65-115); Osmolality Calculated 298 mOsm/kg (285-295); Potassium 5.1 mmol/L (3.5-5.1); Sodium 142 mmol/L (136-145); Total Protein 6.3 g/dL (6.6-8.7)
== END 2025-06-23 23:59 | disposition home or self-care (01) ==
PROVIDERS: Nurse Practitioner Family; PCP Family Medicine; Referring Provider Family Medicine; Visit Provider Internal Medicine Medical Oncology
DX: C91.10 Chronic lymphocytic leukemia of B-cell type not having achieved remission (principal); R03.0 Elevated blood-pressure reading, without diagnosis of hypertension; E16.2 Hypoglycemia, unspecified; Z79.899 Other long term (current) drug therapy; Z86.73 Personal history of transient ischemic attack (TIA), and cerebral infarction without residual deficits; Z92.25 Personal history of immunosuppression therapy
CPT/HCPCS: 36415; 80053; 85025; 99214

== ENCOUNTER 2025-09-06 12:38 | Oncology outpatient (recurring) (ONCR) | payer MEDICARE, OTHER, SELFPAY ==
[2025-09-06 12:57] LABS: Hematocrit 47.3 % (36-47); Hemoglobin 14.80 g/dL (11.27-16.99); Mean Corpuscular HGB Conc 31.3 g/dL (30-55); Mean Corpuscular Hemoglobin 28.5 pg (27-33); Mean Corpuscular Volume 91.0 fl (85-98); Nucleated Red Blood Cells % 0 %; Platelet Count 191 10^3/cmm (157-399); Red Blood Count 5.20 10^6/uL (3.85-5.65); White Blood Count 10.49 10^3/uL (3.29-11.43)
[2025-09-06 13:13] LABS: Alanine Aminotransferase 39 U/L (0-33); Albumin Level 3.9 g/dL (3.5-5.2); Alkaline Phosphatase 222 U/L (35-105); Anion Gap 15.9 (5-19); Aspartate Amino Transferase 51 U/L (0-32); Blood Urea Nitrogen 27 mg/dL (8-23); Calcium 9.2 mg/dL (8.5-10.5); Carbon Dioxide 29 mmol/L (22-29); Chloride 98 mmol/L (98-107); Globulin 2.0 g/dL (1.3-4.6); Glucose 378 mg/dL (65-115); Osmolality Calculated 307 mOsm/kg (285-295); Potassium 4.9 mmol/L (3.5-5.1); Sodium 138 mmol/L (136-145); Total Protein 5.9 g/dL (6.6-8.7)
== END 2025-09-23 23:59 | disposition home or self-care (01) ==
PROVIDERS: Internal Medicine Medical Oncology; PCP Family Medicine; Referring Provider Family Medicine; Visit Provider Nurse Practitioner
DX: C91.10 Chronic lymphocytic leukemia of B-cell type not having achieved remission (principal); R03.0 Elevated blood-pressure reading, without diagnosis of hypertension; K13.79 Other lesions of oral mucosa; Z79.899 Other long term (current) drug therapy; Z86.73 Personal history of transient ischemic attack (TIA), and cerebral infarction without residual deficits; L98.9 Disorder of the skin and subcutaneous tissue, unspecified
CPT/HCPCS: 36415; 80053; 85025; 99213